=== PATIENT | female | born 1955 | race Caucasian/White ===

== ENCOUNTER → 2016-02-18 | Outpatient (CLI) | payer BC ==
[~2016-02-18] MED LIST: CALCTAB5 PO; CHOL100010 PO; EFFSR150 PO; LEVO50TA PO; MULT-506 PO; PRAV20TA PO
== END | disposition home or self-care (01) ==
LOC: C.PAPS 10:44
PROVIDERS: ATTEND Obstetrics & Gynecology
DX: Z01.419 Encounter for gynecological examination (general) (routine) without abnormal findings (principal)

== ENCOUNTER → 2016-02-22 | Outpatient (CLI) | payer BC | END | disposition home or self-care (01) | LOC: C.RDSM 12:43 | PROVIDERS: ATTEND Physical Medicine & Rehabilitation Sports Medicine | DX: M79.672 Pain in left foot (principal) ==

== ENCOUNTER → 2016-02-22 | Outpatient (CLI) | payer BC ==
--- NOTE | 2016-02-27 08:13 | CODING QUERY MEDICAL NECESSITY ---
: 1955 SUPPORTING DIAGNOSIS NEEDED A supporting diagnosis is required for the test/procedure performed on this patient in order for us to be reimbursed by the patient's insurance. Please provide a supporting diagnosis for the following test/procedure listed below next to the test name along with your signature. *If there is no additional diagnosis for this patient that would support the following test/procedure please document that below next to the test/procedure. Test(s)/Procedure(s) that require a supporting diagnosis: DOS: 02/22/16 * Vitamin D, 25-Hydroxy DIAGNOSIS: Provider Signature: Date: Thank you Denise Mitchell Health Information Management Once completed, please kindly fax back to [phone] For questions please call [phone]
== END | disposition home or self-care (01) ==
LOC: C.LAB1850 09:06
PROVIDERS: ATTEND Physical Medicine & Rehabilitation Sports Medicine
DX: M79.672 Pain in left foot (principal); S92.302A Fracture of unspecified metatarsal bone(s), left foot, initial encounter for closed fracture; X58.XXXA Exposure to other specified factors, initial encounter

== ENCOUNTER → 2016-03-24 | Outpatient (CLI) | payer BC ==
--- NOTE | 2016-03-24 15:49 | DIAGNOSTIC IMAGING REPORT ---
LEFT RIBS UNILATERAL WITH PA CHEST CLINICAL HISTORY: S29.9XXA Chest trauma RAD Left trauma. Pain. COMPARISON STUDY: None FINDINGS: Negative study left ribs. No acute process of the chest. IMPRESSION: Negative study Electronically signed by: Jus Hu M.D. 03/24/2016 3:48 PM Dictated Date/Time: 03/24/2016 3:46 PM
== END | disposition home or self-care (01) ==
LOC: C.RAD1850 15:28
PROVIDERS: ATTEND Internal Medicine
DX: S29.9XXA Unspecified injury of thorax, initial encounter (principal); X58.XXXA Exposure to other specified factors, initial encounter

== ENCOUNTER → 2016-03-26 | Outpatient (CLI) | payer BC | END | disposition home or self-care (01) | LOC: C.RDSM 16:15 | PROVIDERS: ATTEND Physical Medicine & Rehabilitation Sports Medicine | DX: S92.911A Unspecified fracture of right toe(s), initial encounter for closed fracture (principal); X58.XXXA Exposure to other specified factors, initial encounter ==

== ENCOUNTER → 2016-04-28 | Outpatient (CLI) | payer BC | END | disposition home or self-care (01) | LOC: C.RDSM 16:15 | PROVIDERS: ATTEND Physical Medicine & Rehabilitation Sports Medicine | DX: S92.309A Fracture of unspecified metatarsal bone(s), unspecified foot, initial encounter for closed fracture (principal); X58.XXXA Exposure to other specified factors, initial encounter ==

== ENCOUNTER → 2016-05-19 | Outpatient (CLI) | payer BC ==
[2016-05-19 13:25] LABS: ESTIMATED AVERAGE GLUCOSE 117 mg/dl; HA1C FLAG Normal (Normal)
[2016-05-19 13:50] LABS: ALT/SGPT 22 U/L (12-78); AST/SGOT 15 U/L (15-37); BLOOD UREA NITROGEN 16 mg/dl (7-18); BUN/CREATININE RATIO 20.6 (10-20); CALCIUM 8.9 mg/dl (8.5-10.1); CARBON DIOXIDE 26 mmol/L (21-32); CHLORIDE 106 mmol/L (98-107); CHOLESTEROL 219 mg/dl (0-200); CREATININE 0.79 mg/dl (0.60-1.20); GLUCOSE 93 mg/dl (70-99); SODIUM 140 mmol/L (136-145); TRIGLYCERIDES 127 mg/dl (0-150); VERY LOW DENSITY LIPOPROT CALC 25 mg/dl
[2016-05-19 14:00] LABS: CHOLESTEROL/HDL RATIO 3.4; HDL CHOLESTEROL 65 mg/dl; LDL CHOLESTEROL CALCULATED 129 mg/dl
== END | disposition home or self-care (01) ==
LOC: C.LAB1850 10:41
PROVIDERS: ATTEND Internal Medicine
DX: E78.5 Hyperlipidemia, unspecified (principal); R73.03 Prediabetes; E03.9 Hypothyroidism, unspecified

== ENCOUNTER → 2016-06-09 | Outpatient (CLI) | payer BC | END | disposition home or self-care (01) | LOC: C.RDSM 14:52 | PROVIDERS: ATTEND Physical Medicine & Rehabilitation Sports Medicine | DX: S92.355A Nondisplaced fracture of fifth metatarsal bone, left foot, initial encounter for closed fracture (principal); X58.XXXA Exposure to other specified factors, initial encounter ==

== ENCOUNTER → 2016-07-14 | Outpatient (CLI) | payer BC | END | disposition home or self-care (01) | LOC: C.RDSM 13:22 | PROVIDERS: ATTEND Physical Medicine & Rehabilitation Sports Medicine | DX: M79.672 Pain in left foot (principal) ==

== ENCOUNTER → 2016-09-01 | Outpatient (CLI) | payer BC | END | disposition home or self-care (01) | LOC: C.RDSM 13:22 | PROVIDERS: ATTEND Physical Medicine & Rehabilitation Sports Medicine | DX: S92.911A Unspecified fracture of right toe(s), initial encounter for closed fracture (principal); X58.XXXA Exposure to other specified factors, initial encounter ==

== ENCOUNTER → 2016-09-26 | Outpatient (CLI) | payer BC ==
[2016-09-26 10:22] LABS: BLOOD UREA NITROGEN 15 mg/dl (7-18); BUN/CREATININE RATIO 19.6 (10-20); CALCIUM 8.8 mg/dl (8.5-10.1); CARBON DIOXIDE 29 mmol/L (21-32); CHLORIDE 108 mmol/L (98-107); CREATININE 0.78 mg/dl (0.60-1.20); GLUCOSE 89 mg/dl (70-99); POTASSIUM 3.9 mmol/L (3.5-5.1); SODIUM 141 mmol/L (136-145)
[2016-09-26 10:35] LABS: CHOLESTEROL 187 mg/dl (0-200); CHOLESTEROL/HDL RATIO 2.7; HDL CHOLESTEROL 70 mg/dl; LDL CHOLESTEROL CALCULATED 86 mg/dl; TRIGLYCERIDES 153 mg/dl (0-150); VERY LOW DENSITY LIPOPROT CALC 31 mg/dl
[2016-09-26 11:57] LABS: ESTIMATED AVERAGE GLUCOSE 126 mg/dl; HA1C FLAG Normal (Normal)
== END | disposition home or self-care (01) ==
LOC: C.LAB1850 07:12
PROVIDERS: ATTEND Internal Medicine
DX: R73.03 Prediabetes (principal); E03.9 Hypothyroidism, unspecified; E78.5 Hyperlipidemia, unspecified

== ENCOUNTER → 2016-11-03 | Outpatient (CLI) | payer BC | END | disposition home or self-care (01) | LOC: C.RDSM 14:41 | PROVIDERS: ATTEND Physical Medicine & Rehabilitation Sports Medicine | DX: S92.911A Unspecified fracture of right toe(s), initial encounter for closed fracture (principal); X58.XXXA Exposure to other specified factors, initial encounter ==

== ENCOUNTER → 2016-12-08 | Outpatient (CLI) | payer BC | END | disposition home or self-care (01) | LOC: C.LAB1850 12:50 | PROVIDERS: ATTEND Nurse Practitioner Adult Health | DX: J02.9 Acute pharyngitis, unspecified (principal) ==

== ENCOUNTER → 2017-02-03 | Outpatient (CLI) | payer BC | END | disposition home or self-care (01) | LOC: C.MAMM 10:24 | PROVIDERS: ATTEND Internal Medicine Hematology & Oncology | DX: C50.919 Malignant neoplasm of unspecified site of unspecified female breast (principal); M81.0 Age-related osteoporosis without current pathological fracture; M85.852 Other specified disorders of bone density and structure, left thigh ==

== ENCOUNTER → 2017-02-04 | Outpatient (CLI) | payer BC | END | disposition home or self-care (01) | LOC: C.RDSM 08:30 | PROVIDERS: ATTEND Physical Medicine & Rehabilitation Sports Medicine | DX: S92.355G Nondisplaced fracture of fifth metatarsal bone, left foot, subsequent encounter for fracture with delayed healing (principal); X58.XXXA Exposure to other specified factors, initial encounter ==

== ENCOUNTER → 2017-02-23 | Outpatient (CLI) | payer BC, OTHER | END | disposition home or self-care (01) | LOC: C.RDSM 13:26 | PROVIDERS: ATTEND Physical Medicine & Rehabilitation Sports Medicine | DX: M25.511 Pain in right shoulder (principal) ==

== ENCOUNTER → 2017-03-05 | Outpatient (CLI) | payer OTHER | END | disposition home or self-care (01) | LOC: C.PAPS 11:18 | PROVIDERS: ATTEND Obstetrics & Gynecology | DX: Z01.419 Encounter for gynecological examination (general) (routine) without abnormal findings (principal); Z78.0 Asymptomatic menopausal state ==

== ENCOUNTER → 2017-03-10 | Outpatient (CLI) | payer OTHER ==
--- NOTE | 2017-03-10 09:09 | DIAGNOSTIC IMAGING REPORT ---
RIGHT SHOULDER MRI HISTORY: RT SHOULDER PAIN TECHNIQUE: Multiplanar multisequence MRI of the right shoulder was performed without contrast. COMPARISON STUDY: Right shoulder 02/23/2017. FINDINGS: AC joint: Moderate AC joint arthrosis demonstrated by joint space narrowing, marginal osteophytes, and subchondral edema/cystic change. Rotator cuff: Complete full-thickness tear of the entire supraspinatus tendon which demonstrates up to 4 cm of retraction. There is also full-thickness tear involving the anterior 50% of the infraspinatus tendon fibers. There is fatty atrophy of the supraspinatus and infraspinatus muscles. There is also suggestion of a full-thickness tear at the distal subscapularis tendon within interstitial component extending proximally. Fluid within the subacromial/subdeltoid bursa as well as superior subluxation of the humeral head in relation to the glenoid. This is due to the rotator cuff tear. Labrum: Abnormal signal configuration within the superior labrum consistent with a SLAP tear. Biceps tendon: The long head of the biceps tendon is completely torn and retracted into the bicipital groove. Bones: No acute fracture or dislocation. Small marginal osteophytes at the glenohumeral joint. Marrow edema within the superior glenoid which may be chronic. Cartilage: Near full-thickness scar is loss within the central and superior aspect of the glenoid. There is also mild cartilage thinning within the humeral head. Miscellaneous: Small joint effusion. There is also fluid within and superficial to the deltoid muscle consistent with a muscular strain. IMPRESSION: 1. Complete full-thickness tear with retraction of the supraspinatus tendon. There are additional focal full-thickness tears involving the anterior infraspinatus tendon fibers as well as the distal subscapularis tendon. 2. Complete tear and retraction of the long head of the biceps tendon. 3. SLAP tear. 4. Degenerative changes as described above. 5. Small joint effusion. 6. Deltoid strain. Electronically signed by: Garret Sheldon M.D. 03/10/2017 9:08 AM Dictated Date/Time: 03/10/2017 8:56 AM
== END | disposition home or self-care (01) ==
LOC: C.MRI 08:08
PROVIDERS: ATTEND Physical Medicine & Rehabilitation Sports Medicine
DX: M25.511 Pain in right shoulder (principal); S46.011A Strain of muscle(s) and tendon(s) of the rotator cuff of right shoulder, initial encounter; S46.111A Strain of muscle, fascia and tendon of long head of biceps, right arm, initial encounter; S46.811A Strain of other muscles, fascia and tendons at shoulder and upper arm level, right arm, initial encounter; X58.XXXA Exposure to other specified factors, initial encounter; M25.411 Effusion, right shoulder

== ENCOUNTER 2021-08-09 13:57 | Inpatient (IN) ==
[2021-08-09 14:52] LABS: Basophils # (auto) 0.03 K/uL (0-0.2); Basophils % (auto) 0.3 %; Eosinophils # (auto) 0.12 K/uL (0-0.5); Eosinophils % (auto) 1.3 %; Hematocrit (blood only) 43.4 % (37-47); Hemoglobin 13.9 g/dL (12.0-16.0); Immature Granulocytes # (auto) 0.03 K/uL (0.00-0.02); Immature Granulocytes % (auto) 0.3 %; Lymphocytes # (auto) 1.85 K/uL (1.2-3.4); Lymphocytes % (auto) 19.9 %; Mean Corpuscular Hemoglobin 28.8 pg (25-34); Mean Corpuscular Volume 89.9 fL (80-100); Mean Platelet Volume 11.5 fL (7.4-10.4); Monocytes # (auto) 0.83 K/uL (0.11-0.59); Monocytes % (auto) 8.9 %; Neutrophils # (auto) 6.42 K/uL (1.4-6.5); Neutrophils % (auto) 69.3 %; Platelet Count 282 K/uL (130-400); RDW Coefficient of Variation 14.1 % (11.5-14.5); RDW Standard Deviation 46.1 fL (36.4-46.3); Red Blood Count 4.83 M/uL (4.2-5.4); White Blood Count 9.28 K/uL (4.8-10.8)
[2021-08-09 14:55] LABS: INR 1.2 (0.9-1.1); Partial Thromboplastin Ratio 0.9; Partial Thromboplastin Time 23.8 Seconds (21.0-31.0); Prothrombin Time 12.7 Seconds (9.0-12.0)
[2021-08-09 14:57] LABS: Albumin Globulin Ratio 1.2 (0.9-2); Albumin Level 3.7 gm/dl (3.4-5.0); BUN Creatinine Ratio 34.1 (10-20); Bilirubin,Total 0.5 mg/dl (0.2-1.0); Calcium 8.9 mg/dl (8.5-10.1); Creatinine Clr Calc Pharmacy 53.4 ml/min; Est GFR (African American) 52.6 ml/min; Est GFR (Non-African American) 45.4 ml/min; Globulin 3.2 gm/dl (2.5-4.0); Magnesium 2.1 mg/dl (1.7-2.4); Total Protein 6.9 gm/dl (6.0-8.3)
--- NOTE | 2021-08-09 16:31 | XRay Report ---
XR chest 1V portable CLINICAL HISTORY: SOB TECHNIQUE: Single frontal radiograph of the chest was obtained. Comparison: Comparison is made to chest radiograph 07/06/2019 FINDINGS: A left portacatheter is unchanged. The cardiomediastinal silhouette is normal. The lungs are clear. T here is a small left pleural effusion. Trace right effusion cannot be excluded. IMPRESSION: Small bilateral pleural effusions. No evidence of airspace opacity. ACT 112: Negative or not required by law. Electronically signed by: Gautam Cowan M.D. 08/09/2021 4:30 PM
--- NOTE | 2021-08-09 16:57 | Emergency Department Note ---
History of Present Illness General Chief complaint: Shortness of Breath/Dyspnea Stated complaint: SOB, ANKLE SWELLING Time Seen by Provider: 08/09/21 16:38 History of Present Illness Maximum Pain Intensity: 0 66-year-old female presents to the ED with a chief complaint of shortness of lizz ath. The patient states that she has had symptoms since May. She states that she saw her doctor back then and was given albuterol treatment as well as some antibiotics. She states that her symptoms are persistent. It seems a little better if she sits up. A little worse with laying down. Also a little worse if she exerts herself. She states that she is scheduled to have a stress test on the . She has a history of breast cancer and is worried about the spreading or having spread to the lungs. She also states that her heart rate feels like it is a little fast and she has a little more edema in her right leg than usual. Home Medications Medication Instructions Recorded Confirmed Type calcium carbonate 600 mg calcium 600 mg PO BID 03/25/18 07/31/21 History (1,500 mg) tablet (Calcium) venlafaxine 150 mg 150 mg PO HS #90 cap 02/11/19 07/31/21 Rx capsule,extended release 24 hr (Effexor XR) venlafaxine 75 mg capsule,extended 75 mg PO QPM cap 01/17/20 07/31/21 History release 24 hr (Effexor XR) cholecalciferol (vitamin D3) 50 50 mcg PO DAILY #30 cap 01/14/21 07/31/21 Rx mcg (2,000 unit) capsule albuterol sulfate 90 mcg/actuation 2 puff INHALATION Q6H PRN #6.7 g 05/17/21 07/31/21 Rx aerosol inhaler fluocinonide 0.05 % topical gel 1 applic TOP BID PRN gm 05/17/21 07/31/21 History mupirocin 2 % topical ointment 1 applic TOP BID PRN gm 05/17/21 07/31/21 Hi story nystatin-triamcinolone 100,000 1 applic TOP BID PRN 05/17/21 07/31/21 History unit/gram-0.1 % topical ointment budesonide-formoterol HFA 80 1 inh INHALATION BID #10.2 g 06/07/21 07/31/21 Rx mcg-4.5 mcg/actuation aerosol inhaler (Symbicort) fluticasone propionate 50 2 spray INTRANASAL DAILY PRN g 06/18/21 07/31/21 History mcg/actuation nasal spray,suspension (Flonase Allergy Relief) lorazepam 0.5 mg tablet (Ativan) 0.5 mg PO DAILY PRN 06/21/21 07/31/21 History levothyroxine 75 mcg tablet 75 mcg PO DAILY #90 tab 07/11/21 07/31/21 Rx pravastatin 20 mg tablet 20 mg PO HS #90 tab 07/11/21 07/31/21 Rx Allergies Allergy/AdvReac Type Severity Reaction Status Date / Time cephalexin Allergy Mild RASH Verified 07/31/21 13:43 Penicillins Allergy Mild UNKNOWN Verified 07/31/21 13:43 Cephalosporins Allergy Unknown RASH Verified 07/31/21 13:43 Past Med/Surg History Medical History Anxiety Artificial menopause state Breast cancer (~1991) Depression Fracture of metatarsal bone Hearing deficit BL BAILEY History of breast cancer BL BREAST; CHEMO/RADIATION, MASTECTOMY Hyperlipidemia Hypothyroidism Limb alert care status PT HAD BL MASTECTOMY W/ LYMPH NODE EXCISION. PT REPORTS RT ARM IS OKAY FOR BP/IV STICKS. LEFT ARM RESTRICTED Osteopenia Osteoporosis Polyp of colon, adenomatous Prediabetes Spondylisthesis Vitamin D deficiency Surgical History History of adenoidectomy History of arthroscopy LEFT SHOULDER History of breast biopsy BL BREAST History of cataract surgery LEFT. 04/22/2018. 2mg versed. no issues. History of colonoscopy with polypectomy History of detached retina repair History of esophagogastroduodenoscopy (EGD) History of lumpectomy LEFT BREAST History of mastectomy BL BREAST; SEPARATE PROCEDURES History of tonsillectomy History of tooth extraction History of total abdominal hysterectomy and bilateral salpingo-oophorectomy History of vascular access device PT HAS A PORT Status post wrist surgery RT Family History Grandmother (Paternal) Family history of diabetes mellitus Retinal detachment Diabetes Father Colorectal cancer Hypertension Retinal detachment Diabetes Colon cancer Mother Ovarian cancer Parkinson disease Grandfather Colon cancer Grandmother (Maternal) Parkinson disease Other Breast cancer Denies family history of Prostate cancer Myocardial infarction Social History Smoking Status: Never smoker Second Hand Exposure: No; Hx Alcohol Use: Yes Alcohol type: hard liquor Hx Substance Use: No Preferred Language: [place] 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 Ability: 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3 C L Temperature Source Temporal Artery Scan Pulse Rate 112 H Pulse Rate from SpO2 Sensor Respiratory Rate 18 Respiratory Effort / Characteristics Non-Labored Respiratory Depth Normal Blood Pressure 146/95 H Blood Pressure Mean 112 Pulse Oximetry 97 Oxygen Delivery Method Room Air Room Air Room Air Sepsis Recent Fever Within 48 Hours No Sepsis New/Unexplained Change in Mental Status No Sepsis Action Taken by Nursing No Action Required 08/09/21 17:27 08/09/21 17:30 08/09/21 17:45 Temperature Temperature Source Pulse Rate 109 H 106 H 106 H Pulse Rate from SpO2 Sensor 110 H 107 H 105 H Respiratory Rate 12 18 19 Respiratory Effort / Characteristics Respiratory Depth Blood Pressure Blood Pressure Mean Pulse Oximetry 97 98 98 Oxygen Delivery Method Sepsis Recent Fever Within 48 Hours Sepsis New/Unexplained Change in Mental Status Sepsis Action Taken by Nursing 08/09/21 18:00 08/09/21 18:15 Temperature Temperature Source Pulse Rate 103 H 107 H Pulse Rate from SpO2 Sensor 104 H 107 H Respiratory Rate 14 26 H Respiratory Effort / Characteristics Respiratory Depth Blood Pressure Blood Pressure Mean Pulse Oximetry 97 97 Oxygen Delivery Method Sepsis Recent Fever Within 48 Hours Sepsis New/Unexplained Change in Mental Status Sepsis Action Taken by Nursing CONSTITUTIONAL/VITAL SIGNS: Reviewed / noted above. GENERAL: Non-toxic in appearance. INTEGUMENTARY: Warm, dry, and [place]. HEAD: Normocephalic. EYES: without scleral icterus or trauma. ENT/OROPHARYNX: clear and moist. LYMPHADENOPATHY/NECK: Is supple without lymphadenopathy or meningismus. RESPIRATORY: Clear to auscultation bilaterally. No increased work of breathing. CARDIOVASCULAR: Regular rate and rhythm. GI/ABDOMEN: Soft and nontender. No organomegaly or pulsatile mass. EXTREMITIES: Warm and well perfused. Mild pedal edema. No calf tenderness. BACK: No CVA tenderness. NEUROLOGICAL: Intact without focal deficits. PSYCHIATRIC: normal affect. MUSCULOSKELETAL: Normally developed with good muscle tone. TRIAGE NURSING DOCUMENTATION REVIEWED. Course Administered Medications Discontinued Medications Ioversol (Optiray 320 125ml) 118 ml IV ONCE ONE Stop: 08/09/21 17:21 Last Admin: 08/09/21 17:20 Dose: 118 ml Documented by: [id number] Medical Decision Making Differential Diagnosis The differential was considered includes acute myocardial infarction, acute coronary syndrome, myocarditis, pericarditis, pericardial effusions /tamponad, esophageal perforation, pulmonary embolism, pneumonia, pneumothorax, cardiomyopathy, congestive heart, anemia , COPD/asthma exacerbation. Medical Records Attestation: I reviewed the patient's medical records. Home Medications Current Medication List: was personally reviewed by me Laboratory Data Attestation: I reviewed the patient's lab results. Result diagrams: 08/09/21 14:22 08/09/21 14:22 Lab Results 08/09/21 08/09/21 08/09/21 Range/Units 14:22 14:22 14:22 WBC 9.28 (4.8-10.8) K/uL RBC 4.83 (4.2-5.4) M/uL Hgb 13.9 (12.0-16.0) g/dL Hct 43.4 (37-47) % MCV 89.9 (80-100) fL MCH 28.8 (25-34) pg MCHC 32.0 (32-36) g/dL RDW Std Deviation 46.1 (36.4-46.3) fL RDW Coeff of Jesse 14.1 (11.5-14.5) % Plt Count 282 (130-400) K/uL MPV 11.5 H (7.4-10.4) fL Immature Gran % (Auto) 0.3 % Neut % (Auto) 69.3 % Lymph % (Auto) 19.9 % [place] % (Auto) 8.9 % Eos % (Auto) 1.3 % Baso % (Auto) 0.3 % Neut # (Auto) 6.42 (1.4-6.5) K/uL Lymph # (Auto) 1.85 (1.2-3.4) K/uL [place] # (Auto) 0.83 H (0.11-0.59) K/uL Eos # (Auto) 0.12 (0-0.5) K/uL Baso # (Auto) 0.03 (0-0.2) K/uL Immature Gran # (Auto) 0.03 H (0.00-0.02) K/uL PT 12.7 H (9.0-12.0) Seconds INR 1.2 H (0.9-1.1) APTT 23.8 (21.0-31.0) Seconds PTT Ratio 0.9 Sodium 141 (136-145) mmol/L Potassium 4.0 (3.5-5.1) mmol/L Chloride 110 H (98-107) mmol/L Carbon Dioxide 25 (21-32) mmol/L Anion Gap 6 (3-11) BUN 42 H (6-23) mg/dl Creatinine 1.23 H (0.6-1.2) mg/dl Est Cr Clr Drug Dosing 53.4 ml/min Est GFR ( Amer) 52.6 ml/min Est GFR (Non-Af Amer) 45.4 ml/min BUN/Creatinine Ratio 34.1 H (10-20) Glucose 129 H (70-99(Fasting)) mg/dl Calcium 8.9 (8.5-10.1) mg/dl Magnesium 2.1 (1.7-2.4) mg/dl Total Bilirubin 0.5 (0.2-1.0) mg/dl AST 42 H (13-39) U/L ALT 73 H (7-52) U/L Alkaline Phosphatase 109 H (34-104) U/L Troponin I High Sens (0-14) pg/ml Total Protein 6.9 (6.0-8.3) gm/dl Albumin 3.7 (3.4-5.0) gm/dl Globulin 3.2 (2.5-4.0) gm/dl Albumin/Globulin Ratio 1.2 (0.9-2) 08/09/21 Range/Units 14:22 WBC (4.8-10.8) K/uL RBC (4.2-5.4) M/uL Hgb (12.0-16.0) g/dL Hct (37-47) % MCV (80-100) fL MCH (25-34) pg MCHC (32-36) g/dL RDW Std Deviation (36.4-46.3) fL RDW Coeff of Jesse (11.5-14.5) % Plt Count (130-400) K/uL MPV (7.4-10.4) fL Immature Gran % (Auto) % Neut % (Auto) % Lymph % (Auto) % [place] % (Auto) % Eos % (Auto) % Baso % (Auto) % Neut # (Auto) (1.4-6.5) K/uL Lymph # (Auto) (1.2-3.4) K/uL [place] # (Auto) (0.11-0.59) K/uL Eos # (Auto) (0-0.5) K/uL Baso # (Auto) (0-0.2) K/uL Immature Gran # (Auto) (0.00-0.02) K/uL PT (9.0-12.0) Seconds INR (0.9-1.1) APTT (21.0-31.0) Seconds PTT Ratio Sodium (136-145) mmol/L Potassium (3.5-5.1) mmol/L Chloride (98-107) mmol/L Carbon Dioxide (21-32) mmol/L Anion Gap (3-11) BUN (6-23) mg/dl Creatinine (0.6-1.2) mg/dl Est Cr Clr Drug Dosing ml/min Est GFR ( Amer) ml/min Est GFR (Non-Af Amer) ml/min BUN/Creatinine Ratio (10-20) Glucose (70-99(Fasting)) mg/dl Calcium (8.5-10.1) mg/dl Magnesium (1.7-2.4) mg/dl Total Bilirubin (0.2-1.0) mg/dl AST (13-39) U/L ALT (7-52) U/L Alkaline Phosphatase (34-104) U/L Troponin I High Sens 36.9 H (0-14) pg/ml Total Protein (6.0-8.3) gm/dl Albumin (3.4-5.0) gm/dl Globulin (2.5-4.0) gm/dl Albumin/Globulin Ratio (0.9-2) Imaging Data Radiologist's Impression: Chest X-Ray 08/09/21 14:05 XR chest 1V portable CLINICAL HISTORY: SOB TECHNIQUE: Single frontal radiograph of the chest was obtained. Comparison: Comparison is made to chest radiograph 07/06/2019 FINDINGS: A left portacatheter is unchanged. The cardiomediastinal silhouette is normal. The lungs are clear. There is a small left pleural effusion. Trace right effusion cannot be excluded. IMPRESSION: Small bilateral pleural effusions. No evidence of airspace opacity. ACT 112: Negative or not required by law. Electronically signed by: Gautam Cowan M.D. 08/09/2021 4:30 PM Chest CTA 08/09/21 16:51 CT ANGIOGRAPHY OF THE CHEST, PULMONARY EMBOLUS PROTOCOL CLINICAL HISTORY: Shortness of breath. Tachycardia. COMPARISON STUDY: Chest radiograph July 05, 2021 and August 09, 2021. PET/CT February 24, 2007. TECHNIQUE: Following IV administration of 118 mL of Optiray, helical axial i mages of the chest were obtained utilizing the pulmonary embolus protocol. Maximal intensity projections and sagittal and coronal reformats were viewed on an independent 3D workstation. IV contrast was administered without complication. Automated exposure control was utilized for the study. A dose lowering technique was utilized adhering to the principles of ALARA. CT DOSE: 423.83 mGy.cm FINDINGS: No pulmonary emboli are identified. Moderate cardiomegaly is noted. There is no pericardial effusion. Prominent mediastinal and bilateral hilar lymph nodes are noted. These may be related to pulmonary edema. There is no pneumothorax. Moderate bilateral pleural effusions are present. Lungs are suboptimally assessed due to respiratory motion. Interlobular septal thickening and groundglass opacities within the lungs suggest pulmonary edema. Central airways are patent. Linear opacities reflect atelectasis. There is no pneumothorax. Postoperative findings within the bilateral axilla are noted. There are bilateral mastectomies. Gallbladder wall thickening is incidentally noted. This is a nonspecific finding. There is mild body wall edema. Stranding within the upper abdomen is likely due to volume overload. IMPRESSION: 1. No pulmonary emboli identified. 2. Findings consistent with pulmonary edema with moderate bilateral pleural effusions. Cardiomegaly. 3. Gallbladder wall thickening with adjacent stranding which is nonspecific and may be related to volume overload/congestive heart failure. This could be correlated with right upper quadrant pain. ACT 112: Negative or not required by law. Electronically signed by: Yahir Griffith M.D. 08/09/2021 5:31 PM ECG Data Attestation: I personally reviewed and interpreted this ECG as follows: Additional Comments: Twelve-lead EKG: Per my interpretation shows a sinus tachycardia rate of 113. No ST elevation. No PVCs. Normal QTC. No significant change from June 07, 2021. PVCs are no longer present. MDM Narrative Patient presents to the ED with a chief complaint of orthopnea and exertional dyspnea that has recently gotten worse. She is scheduled to have a stress test on the . The patient's EKG shows a sinus tach at a rate of 113. No significant ST changes compared to June 07, 2021. CBC is unremarkable. The B UN is 42 and the creatinine is 1.2. She has a mild transaminitis. Chest x-ray and CT scan of the chest suggests pulmonary edema and moderate bilateral pleural effusions. Troponin is mildly elevated. Given the patient's symptoms and today's evaluation and the fact that she is set up for stress test on the , I feel the patient needs further inpatient evaluation more urgently. I spoke with the hospitalist to this regard. She was given an IV dose of Lasix here. Impression & Plan Dyspnea, Congestive heart failure, Elevated troponin Discharge Plan Visit Data Chief Complaint: Shortness of Breath/Dyspnea Stated Complaint: SOB, ANKLE SWELLING ED Provider: Kaz Hendrickson Discharge Problem: Dyspnea, Congestive heart failure, Elevated troponin Patient Disposition: Being Evaluated by Hospitalist Forms Stand Alone Forms: My [facility], Virtual Emergency Department, Important Visit Information Prescriptions Prescriptions: No Action venlafaxine [Effexor XR] 150 mg capsule,extended release 24hr 150 mg PO HS Qty: 90 RF: 0 cholecalciferol (vitamin D3) 50 mcg (2,000 unit) capsule 50 mcg PO DAILY Qty: 30 RF: 0 pravastatin 20 mg tablet 20 mg PO HS Qty: 90 RF: 3 levothyroxine 75 mcg tablet 75 mcg PO DAILY Qty: 90 RF: 3 budesonide-formoterol [Symbicort] 80-4.5 mcg/actuation HFA aerosol inhaler 1 inh inhalation BID Qty: 10.2 RF: 0 venlafaxine [Effexor XR] 75 mg capsule,extended release 24hr 75 mg PO QPM RF: 0 fluocinonide 0.05 % gel 1 applic TOP BID PRNRF: 0 mupirocin 2 % ointment 1 applic TOP BID PRNRF: 0 albuterol sulfate 90 mcg/actuation HFA aerosol inhaler 2 puff inhalation Q6H PRN (Reason: shortness of breath or wheezing) Qty: 6.7 RF: 0 fluticasone propionate [Flonase Allergy Relief] 50 mcg/actuation spray,suspension 2 spray intranasal DAILY PRNRF: 0 nystatin-triamcinolone 100,000-0.1 unit/gram-% ointment 1 applic TOP BID PRNRF: 0 lorazepam [Ativan] 0.5 mg tablet 0.5 mg PO DAILY PRNRF: 0 calcium carbonate [Calcium 600] 600 mg calcium (1,500 mg) Tablet 600 mg PO BID RF: 0 Referrals Referrals: Lamberto Ortiz MD [Primary Care Provider] -
--- NOTE | 2021-08-09 17:01 | Electrocardiogram Report ---
Test Reason : Blood Pressure : / mmHG Vent. Rate : 113 BPM Atrial Rate : 113 BPM P-R Int : 144 ms QRS Dur : 086 ms QT Int : 326 ms P-R-T Axes : 077 034 -65 degrees QTc Int : 447 ms Poor data quality, interpretation may be adversely affected Sinus tachycardia Left atrial enlargement T wave abnormality, consider lateral ischemia ST depression in Anterolateral leads , consider ischemia Abnormal ECG When compared with ECG of 10-JUL-2015 13:15, Vent. rate has increased BY 39 BPM T wave inversion now evident in Lateral leads ST depression in natlat now present Confirmed by Tobias Wheeler ([id number]) on 08/09/2021 5:01:12 PM Referred By: SELF Confirmed By:Tobias Wheeler
[2021-08-09] MEDS ORDERED: OPTIRAY 320 125ml IV ONE (17:20)
--- NOTE | 2021-08-09 17:33 | CT Scan Report ---
CT ANGIOGRAPHY OF THE CHEST, PULMONARY EMBOLUS PROTOCOL CLINICAL HISTORY: Shortness of breath. Tachycardia. COMPARISON STUDY: Chest radiograph July 05, 2021 and August 09, 2021. PET/CT February 24, 2007. TECHNIQUE: Following IV administration of 118 mL of Optiray, helical axial images of the chest were o btained utilizing the pulmonary embolus protocol. Maximal intensity projections and sagittal and cor onal reformats were viewed on an independent 3D workstation. IV contrast was administered without co mplication. Automated exposure control was utilized for the study. A dose lowering technique was ut ilized adhering to the principles of ALARA. CT DOSE: 423.83 mGy.cm FINDINGS: No pulmonary emboli are identified. Moderate cardiomegaly is noted. There is no pericardia l effusion. Prominent mediastinal and bilateral hilar lymph nodes are noted. These may be related to pulmonary edema. There is no pneumothorax. Moderate bilateral pleural effusions are present. Lungs ar e suboptimally assessed due to respiratory motion. Interlobular septal thickening and groundglass opa cities within the lungs suggest pulmonary edema. Central airways are patent. Linear opacities reflect atelectasis. There is no pneumothorax. Postoperative findings within the bilateral axilla are noted. There are bilateral mastectomies. Gallbladder wall thickening is incidentally noted. This is a nonsp ecific finding. There is mild body wall edema. Stranding within the upper abdomen is likely due to vo lume overload. IMPRESSION: 1. No pulmonary emboli identified. 2. Findings consistent with pulmonary edema with moderate bilateral pleural effusions. Cardiomegaly. 3. Gallbladder wall thickening with adjacent stranding which is nonspecific and may be related to vol ume overload/congestive heart failure. This could be correlated with right upper quadrant pain. ACT 112: Negative or not required by law. Electronically signed by: Yahir Griffith M.D. 08/09/2021 5:31 PM
[2021-08-09] MEDS ORDERED: FUROSEMIDE INJ 20 MG/2 ML VIAL IV ONE (19:40)
--- NOTE | 2021-08-09 21:24 | History & Physical Report ---
Date of Service August 09, 2021 Assessment & Plan (1) Congestive heart failure: Plan: Faina Kerr is a 66-year-old female with past medical history of anxiety, depression, breast cancer for which she received doxorubicin, hyperlipidemia, hypothyroidism, osteoporosis, prediabetes who presented to [facility] for shortness of breath. Imaging and physical exam findings consistent with fluid overload concerning for new-onset CHF. Congestive heart failure likely, new onset No known history of CAD, no treatment for hypertension EKGs do show some evidence of likely prior ischemia, expect patient will probably require catheterization Received Lasix 20 mg IV in ED Continue with Lasix 40 mg IV daily Monitor I's and O's, daily weights Patient is not currently on ABDOUL/ARB, beta-mann or any other cardiac treat ment Echocardiogram ordered Cardiology consulted patient has been seen previously by Dr. Sargent Elevate head of bed CMP in a.m. monitor creatinine Admit to telemetry Elevated troponin Mild troponin elevation likely due to demand ischemia Patient did have ST depression in anterolateral leads, which are visible in EKG from June 07, 2021 Has not had any chest pain Continue to trend Cardiology consulted as above Elevated LFTs CT findings of gallbladder wall thickening with adjacent stranding as well Likely secondary to fluid overload No current abdominal/GI complaints Repeat CMP in a.m. Anxiety/depression/schizoid personality disorder Continue home venlafaxine Continue home lorazepam as needed Hyperlipidemia Continue home pravastatin 20 mg Lipid profile from 07/10/2021 showing total cholesterol 178, LDL 91, HDL 67 Hypothyroidism Continue home levothyroxine Asthma/bronchitis Continue home inhaler regimen DVT prophylaxis: Heparin 5000 units subcu every 8 hours Diet: Heart healthy, low-sodium Dispo: Admit to telemetry CODE STATUS: Full (2) Dyspnea: (3) Elevated troponin: (4) Hyperlipidemia: (5) Hypothyroidism: (6) Vitamin D deficiency: (7) Schizoid personality disorder, unspecified: (8) Polyp of colon, adenomatous: (9) Osteoporosis: (10) Breast cancer: (11) Anxiety: (12) Depression: Plan: Pt seen/examined in conjunction with resident MD Knox. Orders and plan of admission formulated with resident. 66 y/o F Hx asthma, hypothyroidism, HLD, depression, breast CA - chemo included doxorubicin. She has had progressive exertional dyspnea x 2 months. She was scheduled for a stress test 07/20 following a cardiology evaluation. Recently her symptoms have worsened and she reports orthopnea and LE edema. She contacted her primary MD and was instructed to attend the ER. Initial labs were notable for an elevated troponin, transaminitis and mild renal impairment. A CT chest demonstrated BL effusions and pulmonary edema. An EKG shows sinus tach and ST changes inferiorly and laterally. She does not endorse CP at the time of evaluation. She had a pressure of 165/110 on arrival to the ER. O/E General: AAO x 3, no distress ENT: No erythema or exudates, no thrush Eyes: SOFIA, EOMI Head and neck: Normocephalic, atraumatic, No JVD, neck is supple. Chest/heart: Nontender, S1,2, RRR, no murmurs, no gallops Lungs: BL basilar crackles noted Abdomen: Nontender, nondistended, BS+ Neuro: AAO x 3, speech is clear, no unilateral weakness or loss of sensation, coordination intact Musculoskeletal: No joint inflammation, muscle tenderness, FROM Skin: No acute rashes or ulcers Extremities: No clubbing, cyanosis. + BL edema. A/P 1) New-onset CHF - diuretics provided, I/O daily weights, echo cardiology consult. 2) Elevated trop - EKG changes - presentation is not consistent with ACS however. We will provide full-dose anticoagulation if trop trends up. Echo pending. Cont statin. 3) ANGELA - mild - likely due to volume overload/low flow. We would expect improvement with diuresis. BMP AM. 4) Transaminitis - likely due to congestion. Trend LFTs 5) Hypothyroidism - TSH WNL May - cont Synthroid. Repeat TSH. 6) BP elevated likely due to volume - consider beta mann AM and will apply NTG. 7) depression - cont venlafaxine 8) Asthma - no evidence of exacerbation - cont prescribed inhalers Total time for this admission including review of labs, meds, imaging, records, discussion with pt and ER attending - 50 min History of Present Illness Primary Care Provider: Lamberto Ortiz MD Faina Kerr is a 66-year-old female with past medical history of anxiety, depression, breast cancer for which she received doxorubicin, hyperlipidemia, hypothyroidism, osteoporosis, prediabetes who presented to [facility] for shortness of breath. States that symptoms started in May and she had presented to her PCPs office for evaluation. At that time, her symptoms were thought to be caused by asthma exacerbation and bacterial rhinosinusitis. She was given albuterol and d oxycycline. Later that month she did present again to her PCPs office for follow-up and was incidentally found to have frequent PVCs at that visit. She did not endorse any chest pain or palpitations with this, though she did report occasionally feeling skipped beats. She was referred to cardiology for further discussion. She was seen by [facility] cardiology in late June. A Holter monitor was ordered, and at the time she did report some wheezing and mild dyspnea. Thought to be related to underlying bronchitis or lung issue, but echocardiogram to be considered if she did not improve. She presented again to her primary care office in late July with continued shortness of breath. At this visit, her symptoms did seem more consistent with exertional dyspnea as she reported having to stop and rest when walking up her street and going up stairs. At that point, stress testing was ordered and it was recommended that she present to the ER if she had worsening shortness of breath or chest pain. Today, she did have worsening dyspnea. Continues to report that it feels worse with exertion and now with laying down as well. She does feel somewhat better when she sits up. Also reported some ankle swelling, worse on her right. Denies chest pain, nausea, vomiting, abdominal pain, fever, chills, headache, dizziness. In the ED, patient had CT of the chest demonstrating pulmonary edema with moderate bilateral pleural effusions and cardiomegaly, no PE, and did show gallbladder wall thickening with adjacent stranding this was considered to be nonspecific and possibly related to volume overload/congestive heart failure. She did not report any abdominal/GI symptoms at this time. Lab work showing normal WBC, normal hemoglobin, normal platelet count, normal electrolytes. Troponin mildly elevated to 36.9. Initial creatinine at 1.15, which was repeated later and had increased to 1.23. Did have elevated LFTs with AST of 42, ALT 73, alk phos 109. She received a single dose of Lasix 20 mg IV. Allergies Allergy/AdvReac Type Severity Reaction Status Date / Time cephalexin Allergy Mild RASH Verified 08/09/21 21:31 Penicillins Allergy Mild UNKNOWN Verified 08/09/21 21:31 Cephalosporins Allergy Unknown RASH Verified 08/09/21 21:31 Home Medications Medication Instructions Recorded Confirmed Type calcium carbonate 600 mg calcium 600 mg PO BID 03/25/18 08/09/21 History (1,500 mg) tablet (Calcium) venlafaxine 150 mg 150 mg PO HS #90 cap 02/11/19 08/09/21 Rx capsule,extended release 24 hr (Effexor XR) venlafaxine 75 mg capsule,extended 75 mg PO HS cap 01/17/20 08/09/21 History release 24 hr (Effexor XR) cholecalciferol (vitamin D3) 50 50 mcg PO DAILY #30 cap 01/14/21 08/09/21 Rx mcg (2,000 unit) capsule albuterol sulfate 90 mcg/actuation 2 puff INHALATION Q6H PRN #6.7 g 05/17/21 08/09/21 Rx aerosol inhaler fluocinonide 0.05 % topical gel 1 applic TOP BID PRN gm 05/17/21 08/09/21 History mupirocin 2 % topical ointment 1 applic TOP BID PRN gm 05/17/21 08/09/21 History nystatin-triamcinolone 100,000 1 applic TOP BID PRN 05/17/21 08/09/21 History unit/gram-0.1 % topical ointment budesonide-formoterol HFA 80 1 inh INHALATION BID #10.2 g 06/07/21 08/09/21 Rx mcg-4.5 mcg/actuation aerosol inhaler (Symbicort) fluticasone propionate 50 2 spray INTRANASAL DAILY PRN g 06/18/21 08/09/21 History mcg/actuation nasal spray,suspension (Flonase Allergy Relief) lorazepam 0.5 mg tablet (Ativan) 0.5 mg PO DAILY PRN 06/21/21 08/09/21 History levothyroxine 75 mcg tablet 75 mcg PO DAILY #90 tab 07/11/21 08/09/21 Rx pravastatin 20 mg tablet 20 mg PO HS #90 tab 07/11/21 08/09/21 Rx Past Med/Surg History Medical History (Updated 08/09/21 @ 21:17 by Demond Knox MD) Anxiety Artificial menopause state Breast cancer (~1991) Depression Fracture of metatarsal bone Hearing deficit BL BAILEY History of breast cancer BL BREAST; CHEMO/RADIATION, MASTECTOMY Hyperlipidemia Hypothyroidism Limb alert care status PT HAD BL MASTECTOMY W/ LYMPH NODE EXCISION. PT REPORTS RT ARM IS OKAY FOR BP/IV STICKS. LEFT ARM RESTRICTED Osteopenia Osteoporosis Polyp of colon, adenomatous Prediabetes Spondylisthesis Vitamin D deficiency Surgical History History of adenoidectomy History of arthroscopy LEFT SHOULDER History of breast biopsy BL BREAST History of cataract surgery LEFT. 04/22/2018. 2mg versed. no issues. History of colonoscopy with polypectomy History of detached retina repair History of esophagogastroduodenoscopy (EGD) History of lumpectomy LEFT BREAST History of mastectomy BL BREAST; SEPARATE PROCEDURES History of tonsillectomy History of tooth extraction History of total abdominal hysterectomy and bilateral salpingo-oophorectomy History of vascular access device PT HAS A PORT Status post wrist surgery RT Family History Grandmother (Paternal) Family history of diabetes mellitus Retinal detachment Diabetes Father Colorectal cancer Hypertension Retinal detachment Diabetes Colon cancer Mother Ovarian cancer Parkinson disease Grandfather Colon cancer Grandmother (Maternal) Parkinson disease Other Breast cancer Denies family history of Prostate cancer Myocardial infarction Social History Smoking Status: Never smoker Second Hand Exposure: No; Do You Dip or Chew Tobacco: No; Hx Alcohol Use: Yes Alcohol type: beer and wine Hx Substance Use: No Preferred Language: Croatian 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 Ability: Effective 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 Coffee Required: No Beliefs That Will Affect Care: None marital status: Single Current Living Situation: Alone current occupational status: employed current occupation: [employer] Other Information That Helps Us Care for You: No Feels Safe at Home: Yes Safety Concerns: Feels Safe At This Time Childhood Exposure to Second-Hand Smoke: No Dental Care, Regularly: Yes Physical Activity Frequency: Does not Exercise Seatbelt Use: always Sunscreen Use: Yes Assistive Devices: Glasses and Hearing Aid - Right Review of Systems Review of Systems: Per HPI Physical Exam Physical Exam: GENERAL: A&Ox3. NAD. HEENT: PERRL, EOMI. Moist mucous membranes. NECK: No JVD. No lymphadenopathy. CHEST/LUNGS: CTAB A/P. No crackles, wheezes, rales, rhonchi. HEART: Tachycardic, regular rhythm. No m/g/r. No carotid bruits. ABDOMEN: NT/ND, soft. BS+ x4 EXTREMITIES: 1+ pitting edema in right lower extremity up to ankle, trace edema in left lower extremity. No cyanosis, no clubbing. SKIN: Warm and dry. No rashes or lesions. PSYCHIATRIC: Euthymic affect, no SI, no pressured speech, no hallucinations NEUROLOGIC: No FND. CN II-XII grossly intact. Results & Data Results & Data ([facility]) Vital Signs (Past 12 Hours) Vital Signs Temp Pulse Pulse Resp BP BP Pulse Ox 08/09/21 20:19 107 H 20 165/114 H 97 08/09/21 18:15 107 H 26 H 97 08/09/21 18:00 103 H 14 97 08/09/21 17:45 106 H 19 98 08/09/21 17:30 106 H 18 98 08/09/21 17:27 109 H 12 97 08/09/21 14:03 36.3 C L 112 H 18 146/95 H 97 Code Status & VTE Plan VTE Prophylaxis Plan VTE Prophylaxis will be ordered: Yes Resident Activity Tracking Resident Involvement: Resident Care Provided Care Provided: Adult Hospital Medicine
[2021-08-09] MEDS ORDERED: NYSTATIN/TRIAMCIN OINT 15 GM TUBE EXT PRN (21:39)
[2021-08-09] MEDS ORDERED: FLUTICASONE PROPIONATE NA SPR 16 GM BTL PRN (21:39)
[2021-08-09] MEDS ORDERED: ONDANSETRON INJ 2 MG/ML 2 ML VIAL IV PRN (21:39)
[2021-08-09] MEDS ORDERED: FLUOCINONIDE 0.05% OINT 15 GM TUBE EXT PRN (21:39)
[2021-08-09] MEDS ORDERED: ACETAMINOPHEN 325 MG TAB PO PRN (21:39)
[2021-08-09] MEDS ORDERED: ALUMINUM/MAGNESIUM SUSP 30 ML UDC PO PRN (21:39)
[2021-08-09] MEDS ORDERED: LORazepam 0.5 MG TAB PO PRN (21:39)
[2021-08-09] MEDS ORDERED: ALBUTEROL HFA 8 GM INHALER INH PRN (21:39)
[2021-08-09] MEDS ORDERED: POLYETHYLENE (MIRALAX) 17 GM PACK PO PRN (21:39)
[2021-08-09] MEDS: CALCIUM CARBONATE 1250MG TAB PO SCH (22:24)
[2021-08-09] MEDS: VENLAFAXINE HCL XR 150 MG CAPXR PO SCH (22:25)
[2021-08-09] MEDS: VENLAFAXINE HCL XR 75 MG CAPXR PO SCH (22:25)
[2021-08-09] MEDS: PRAVASTATIN SOD 20 MG TAB PO SCH (22:25)
[2021-08-09] MEDS: HEPARIN SOD 5,000 UNIT/0.5 ML VIAL SQ SCH (22:30)
[2021-08-10] MEDS: NITROGLYCERIN 2% OINTMENT 30GM TUBE EXT SCH ×5 (01:37→23:42)
[2021-08-10 04:15] LABS: Basophils # (auto) 0.02 K/uL (0-0.2); Basophils % (auto) 0.2 %; Eosinophils # (auto) 0.09 K/uL (0-0.5); Eosinophils % (auto) 1.1 %; Hemoglobin 12.7 g/dL (12.0-16.0); Immature Granulocytes # (auto) 0.01 K/uL (0.00-0.02); Immature Granulocytes % (auto) 0.1 %; Lymphocytes # (auto) 1.94 K/uL (1.2-3.4); Mean Corpuscular Hemoglobin 29.1 pg (25-34); Mean Corpuscular Hgb Conc 32.6 g/dL (32-36); Mean Corpuscular Volume 89.4 fL (80-100); Mean Platelet Volume 11.6 fL (7.4-10.4); Monocytes # (auto) 0.76 K/uL (0.11-0.59); Neutrophils # (auto) 5.61 K/uL (1.4-6.5); Neutrophils % (auto) 66.6 %; Platelet Count 236 K/uL (130-400); RDW Standard Deviation 46.1 fL (36.4-46.3); Red Blood Count 4.36 M/uL (4.2-5.4); White Blood Count 8.43 K/uL (4.8-10.8)
[2021-08-10 04:24] LABS: Albumin Globulin Ratio 1.2 (0.9-2); Albumin Level 3.3 gm/dl (3.4-5.0); BUN Creatinine Ratio 38.4 (10-20); Bilirubin,Total 0.5 mg/dl (0.2-1.0); Calcium 8.9 mg/dl (8.5-10.1); Creatinine Clr Calc Pharmacy 66.1 ml/min; Est GFR (African American) 68.3 ml/min; Globulin 2.8 gm/dl (2.5-4.0); Magnesium 1.9 mg/dl (1.7-2.4); Potassium 3.8 mmol/L (3.5-5.1); Total Protein 6.1 gm/dl (6.0-8.3)
[2021-08-10] MEDS: HEPARIN SOD 5,000 UNIT/0.5 ML VIAL SQ SCH (05:46)
[2021-08-10] MEDS: LEVOTHYROXINE SODIUM 75 MCG TABLET PO SCH (05:46)
[2021-08-10] MEDS: FUROSEMIDE 40 MG/4 ML VIAL IV SCH (08:35)
[2021-08-10] MEDS: CALCIUM CARBONATE 1250MG TAB PO SCH ×2 (08:37→20:11)
[2021-08-10] MEDS: CHOLECALCIFEROL 1,000 UNITS 25 MCG TAB PO SCH (08:37)
[2021-08-10] MEDS: FLUTICASONE/VILANTEROL 100/25MCG 14 PUFFS/INHALER INH SCH (08:37)
[2021-08-10] MEDS ORDERED: HEPARIN SODIUM/DEXTROSE 25,000 UNITS/500 ML BAG IV SCH (10:15)
[2021-08-10] MEDS ORDERED: Heparin IV Adult Wt-Based Standard *NO* Bolus Protocol IV STA (10:45)
[2021-08-10 11:06] LABS: INR 1.1 (0.9-1.1); Partial Thromboplastin Ratio 0.9; Partial Thromboplastin Time 24.2 Seconds (21.0-31.0); Prothrombin Time 11.9 Seconds (9.0-12.0)
[2021-08-10] MEDS: HEPARIN SODIUM/DEXTROSE 25,000 UNITS/500 ML BAG IV SCH (11:19)
--- NOTE | 2021-08-10 11:50 | XCELERA ---
[id number]
--- NOTE | 2021-08-10 11:54 | Ultrasound Report ---
US venous doppler LE RT CLINICAL HISTORY: RLE swelling TECHNIQUE: Right lower extremity real-time compression venous ultrasound with Color Doppler imaging. Utilizing real-time ultrasonic imaging multiple real time high-resolution ultrasonic images with comp ression and noncompression maneuvers of the deep venous system in addition to color doppler imaging w ere performed from the common femoral vein through the proximal calf veins. COMPARISON: None available at the time of this dictation. FINDINGS: Currently there is normal compressibility of the deep venous system from the common femoral vein thro ugh the proximal calf veins. A popliteal cyst at lesion is seen measuring 8.3 x 2.0 x 7.3 cm. This i s favored to represent a Tompkins's cyst. Impression: No evidence of deep venous thrombus. ACT 112: Negative or not required by law. Electronically signed by: Gautam Cowan M.D. 08/10/2021 11:53 AM
--- NOTE | 2021-08-10 12:41 | Hospitalist Progress Note ---
Date of Service August 10, 2021 Assessment & Plan (1) Congestive heart failure: Plan: Yonas Del Rosario is a 66-year-old female with past medical history of anxiety, depression, breast cancer for which she received doxorubicin, hyperlipidemia, hypothyroidism, osteoporosis, prediabetes who presented to [facility] for shortness of breath. Imaging and physical exam findings consistent with fluid overload concerning for new-onset CHF. New Dilated cardiomyopathy with acute HFrEF likely, new onset No known history of CAD, has hx of HTN but has not been on treatment for it EKGs do show some evidence of likely prior ischemia, BNP elevated at 2573 on admission Received Lasix 20 mg IV in ED Continue with Lasix 40 mg IV daily Monitor I's and O's, daily weights Echocardiogram 08/10: severely reduced systolic function with EF 20-25%. Severe global hypokinesis. Apical thrombus. Moderate mitral regurg. Moderate to severe tricuspid regurg. Moderate pulmonary HTN (RSVP 53 mmHg). Pleural effusion. Not on any ACEi/ARB, beta-mann Cardiology consulted, pending Left ventricle Thrombus - new - Started on anticoagulation with IV Heparin standard dose given apical thrombus Elevated troponin, improving Mild troponin elevation on admission - 39.3 --> 46.4 --> 36.[address] depression in anterolateral leads, which are visible in EKG from June 07, 2021 Remains w/o chest pain Cardiology consulted as above - already on statin. Elevated LFTs, improving CT findings of gallbladder wall thickening with adjacent stranding as well Likely secondary to fluid overload Remains w/o current abdominal/GI complaints LFTs are down trending; will continue to monitor Recommend outpatient f/u Right leg edema RLE Doppler 08/10: no evidence of DVT; popliteal cyst 8.3 x 2.0 x 7.3 cm favored to represent Tompkins's cyst Anxiety/depression/schizoid personality disorder Continue home venlafaxine Continue home lorazepam as needed Hyperlipidemia Continue home pravastatin 20 mg Lipid profile from 07/10/2021 showing total cholesterol 178, LDL 91, HDL 67 Hypothyroidism Continue home levothyroxine Asthma/bronchitis Continue home inhaler regimen Prediabetes A1c 5.8% on 07/10/21 Patient continues with impaired fasting glucose during admission Encourage lifestyle modification and will need outpatient PCP f/u DVT prophylaxis: IV Heparin Diet: Heart healthy, low-sodium Dispo: Admit to telemetry CODE STATUS: Full (2) Dyspnea: (3) Elevated troponin: (4) Hyperlipidemia: (5) Hypothyroidism: (6) Vitamin D deficiency: (7) Schizoid personality disorder, unspecified: (8) Polyp of colon, adenomatous: (9) Osteoporosis: (10) Breast cancer: (11) Anxiety: (12) Depression: Admission and Anticipated Discharge Date Admission Date: August 09, 2021 Supervising Physician Co-Signing Physician Notes Resident Physician Supervision Note: I independently interviewed and examined the patient and verified the good history and physical, reviewed labs and image studies and agree with resident Dr. Solorio findings and care plan. Subjective Patient seen and evaluated at bedside this morning. Notes that the progressive SOB she has been having over the past several months has slightly improved since admission to the hospital with lasix administration. Denies current SOB at rest. + orthopnea, slightly improved (has been using 2 pillows at home). To note, patient has had increased RLE swelling over the past week; denies RLE pain or cramping. Denies CP, abd pain, nausea, vomiting, fever, or chills. Review of Systems Review of Systems: See HPI Physical Exam Physical Exam: GENERAL: No acute distress. Well developed and well nourished. Vital signs reviewed as above. EYES: EOMI. Anicteric sclerae. HENT: Moist mucous membranes. RESPIRATORY: No respiratory distress. Unlabored respirations. Clear to auscultation bilaterally. No wheezing. CARDIOVASCULAR: Regular rate and rhythm. No murmurs. ABDOMEN: Soft, non-tender and non-distended. Normal bowel sounds. EXTREMITIES: 1+ non-pitting RLE edema. Trace LLE edema. Non-tender. SKIN: Warm, dry. No rashes or lesions. NEUROLOGIC: A/O x3. Normal speech. No focal neurological deficits. PSYCHIATRIC: Cooperative. Appropriate mood and affect. Results & Data Results & Data ([facility]) Vital Signs (Past 12 Hours) Vital Signs Temp Pulse Resp BP Pulse Ox 08/10/21 11:58 106 H 149/103 H 08/10/21 08:34 108 H 160/114 H 08/10/21 08:04 36.6 C 120 H 16 151/110 H 98 08/10/21 03:08 36.8 C 103 H 19 152/101 H 97 Laboratory Results 07/04/0208/10/21 08/10/21 Range/Units 10:32 06:07 03:27 WBC (4.8-10.8) K/uL RBC (4.2-5.4) M/uL Hgb (12.0-16.0) g/dL Hct (37-47) % MCV (80-100) fL MCH (25-34) pg MCHC (32-36) g/dL RDW Std Deviation (36.4-46.3) fL RDW Coeff of Jesse (11.5-14.5) % Plt Count (130-400) K/uL MPV (7.4-10.4) fL Immature Gran % (Auto) % Neut % (Auto) % Lymph % (Auto) % [place] % (Auto) % Eos % (Auto) % Baso % (Auto) % Neut # (Auto) (1.4-6.5) K/uL Lymph # (Auto) (1.2-3.4) K/uL [place] # (Auto) (0.11-0.59) K/uL Eos # (Auto) (0-0.5) K/uL Baso # (Auto) (0-0.2) K/uL Immature Gran # (Auto) (0.00-0.02) K/uL PT 11.9 (9.0-12.0) Seconds INR 1.1 (0.9-1.1) APTT 24.2 (21.0-31.0) Seconds PTT Ratio 0.9 Sodium 142 (136-145) mmol/L Potassium 3.8 (3.5-5.1) mmol/L Chloride 111 H (98-107) mmol/L Carbon Dioxide 22 (21-32) mmol/L Anion Gap 9 (3-11) BUN 38 H (6-23) mg/dl Creatinine 0.99 (0.6-1.2) mg/dl Est Cr Clr Drug Dosing 66.1 ml/min Est GFR ( Amer) 68.3 ml/min Est GFR (Non-Af Amer) 59.0 ml/min BUN/Creatinine Ratio 38.4 H (10-20) Glucose 107 H (70-99(Fasting)) mg/dl Calcium 8.9 (8.5-10.1) mg/dl Magnesium 1.9 (1.7-2.4) mg/dl Total Bilirubin 0.5 (0.2-1.0) mg/dl AST 33 (13-39) U/L ALT 61 H (7-52) U/L Alkaline Phosphatase 93 (34-104) U/L Troponin I High Sens (0-14) pg/ml B-Natriuretic Peptide (0-100) pg/ml Total Protein 6.1 (6.0-8.3) gm/dl Albumin 3.3 L (3.4-5.0) gm/dl Globulin 2.8 (2.5-4.0) gm/dl Albumin/Globulin Ratio 1.2 (0.9-2) TSH 1.579 SARS-CoV-2, RNA, NAAT (NEGATIVE) 08/10/21 08/10/21 08/10/21 Range/Units 03:27 03:27 03:27 WBC 8.43 (4.8-10.8) K/uL RBC 4.36 (4.2-5.4) M/uL Hgb 12.7 (12.0-16.0) g/dL Hct 39.0 (37-47) % MCV 89.4 (80-100) fL MCH 29.1 (25-34) pg MCHC 32.6 (32-36) g/dL RDW Std Deviation 46.1 (36.4-46.3) fL RDW Coeff of Jesse 14.0 (11.5-14.5) % Plt Count 236 (130-400) K/uL MPV 11.6 H (7.4-10.4) fL Immature Gran % (Auto) 0.1 % Neut % (Auto) 66.6 % Lymph % (Auto) 23.0 % [place] % (Auto) 9.0 % Eos % (Auto) 1.1 % Baso % (Auto) 0.2 % Neut # (Auto) 5.61 (1.4-6.5) K/uL Lymph # (Auto) 1.94 (1.2-3.4) K/uL [place] # (Auto) 0.76 H (0.11-0.59) K/uL Eos # (Auto) 0.09 (0-0.5) K/uL Baso # (Auto) 0.02 (0-0.2) K/uL Immature Gran # (Auto) 0.01 (0.00-0.02) K/uL PT (9.0-12.0) Seconds INR (0.9-1.1) APTT (21.0-31.0) Seconds PTT Ratio Sodium (136-145) mmol/L Potassium (3.5-5.1) mmol/L Chloride (98-107) mmol/L Carbon Dioxide (21-32) mmol/L Anion Gap (3-11) BUN (6-23) mg/dl Creatinine (0.6-1.2) mg/dl Est Cr Clr Drug Dosing ml/min Est GFR ( Amer) ml/min Est GFR (Non-Af Amer) ml/min BUN/Creatinine Ratio (10-20) Glucose (70-99(Fasting)) mg/dl Calcium (8.5-10.1) mg/dl Magnesium (1.7-2.4) mg/dl Total Bilirubin (0.2-1.0) mg/dl AST (13-39) U/L ALT (7-52) U/L Alkaline Phosphatase (34-104) U/L Troponin I High Sens 39.3 H (0-14) pg/ml B-Natriuretic Peptide (0-100) pg/ml Total Protein (6.0-8.3) gm/dl Albumin (3.4-5.0) gm/dl Globulin (2.5-4.0) gm/dl Albumin/Globulin Ratio (0.9-2) TSH Cancelled SARS-CoV-2, RNA, NAAT (NEGATIVE) 08/09/21 08/09/21 08/09/21 Range/Units 21:51 20:33 14:22 WBC (4.8-10.8) K/uL RBC (4.2-5.4) M/uL Hgb (12.0-16.0) g/dL Hct (37-47) % MCV (80-100) fL MCH (25-34) pg MCHC (32-36) g/dL RDW Std Deviation (36.4-46.3) fL RDW Coeff of Jesse (11.5-14.5) % Plt Count (130-400) K/uL MPV (7.4-10.4) fL Immature Gran % (Auto) % Neut % (Auto) % Lymph % (Auto) % [place] % (Auto) % Eos % (Auto) % Baso % (Auto) % Neut # (Auto) (1.4-6.5) K/uL Lymph # (Auto) (1.2-3.4) K/uL [place] # (Auto) (0.11-0.59) K/uL Eos # (Auto) (0-0.5) K/uL Baso # (Auto) (0-0.2) K/uL Immature Gran # (Auto) (0.00-0.02) K/uL PT (9.0-12.0) Seconds INR (0.9-1.1) APTT (21.0-31.0) Seconds PTT Ratio Sodium (136-145) mmol/L Potassium (3.5-5.1) mmol/L Chloride (98-107) mmol/L Carbon Dioxide (21-32) mmol/L Anion Gap (3-11) BUN (6-23) mg/dl Creatinine (0.6-1.2) mg/dl Est Cr Clr Drug Dosing ml/min Est GFR ( Amer) ml/min Est GFR (Non-Af Amer) ml/min BUN/Creatinine Ratio (10-20) Glucose (70-99(Fasting)) mg/dl Calcium (8.5-10.1) mg/dl Magnesium (1.7-2.4) mg/dl Total Bilirubin (0.2-1.0) mg/dl AST (13-39) U/L ALT (7-52) U/L Alkaline Phosphatase (34-104) U/L Troponin I High Sens 46.4 H (0-14) pg/ml B-Natriuretic Peptide 2573 H (0-100) pg/ml Total Protein (6.0-8.3) gm/dl Albumin (3.4-5.0) gm/dl Globulin (2.5-4.0) gm/dl Albumin/Globulin Ratio (0.9-2) TSH SARS-CoV-2, RNA, NAAT NEGATIVE (NEGATIVE) 08/09/21 08/09/21 08/09/21 Range/Units 14:22 14:22 14:22 WBC (4.8-10.8) K/uL RBC (4.2-5.4) M/uL Hgb (12.0-16.0) g/dL Hct (37-47) % MCV (80-100) fL MCH (25-34) pg MCHC (32-36) g/dL RDW Std Deviation (36.4-46.3) fL RDW Coeff of Jesse (11.5-14.5) % Plt Count (130-400) K/uL MPV (7.4-10.4) fL Immature Gran % (Auto) % Neut % (Auto) % Lymph % (Auto) % [place] % (Auto) % Eos % (Auto) % Baso % (Auto) % Neut # (Auto) (1.4-6.5) K/uL Lymph # (Auto) (1.2-3.4) K/uL [place] # (Auto) (0.11-0.59) K/uL Eos # (Auto) (0-0.5) K/uL Baso # (Auto) (0-0.2) K/uL Immature Gran # (Auto) (0.00-0.02) K/uL PT 12.7 H (9.0-12.0) Seconds INR 1.2 H (0.9-1.1) APTT 23.8 (21.0-31.0) Seconds PTT Ratio 0.9 Sodium 141 (136-145) mmol/L Potassium 4.0 (3.5-5.1) mmol/L Chloride 110 H (98-107) mmol/L Carbon Dioxide 25 (21-32) mmol/L Anion Gap 6 (3-11) BUN 42 H (6-23) mg/dl Creatinine 1.23 H (0.6-1.2) mg/dl Est Cr Clr Drug Dosing 53.4 ml/min Est GFR ( Amer) 52.6 ml/min Est GFR (Non-Af Amer) 45.4 ml/min BUN/Creatinine Ratio 34.1 H (10-20) Glucose 129 H (70-99(Fasting)) mg/dl Calcium 8.9 (8.5-10.1) mg/dl Magnesium 2.1 (1.7-2.4) mg/dl Total Bilirubin 0.5 (0.2-1.0) mg/dl AST 42 H (13-39) U/L ALT 73 H (7-52) U/L Alkaline Phosphatase 109 H (34-104) U/L Troponin I High Sens 36.9 H (0-14) pg/ml B-Natriuretic Peptide (0-100) pg/ml Total Protein 6.9 (6.0-8.3) gm/dl Albumin 3.7 (3.4-5.0) gm/dl Globulin 3.2 (2.5-4.0) gm/dl Albumin/Globulin Ratio 1.2 (0.9-2) TSH SARS-CoV-2, RNA, NAAT (NEGATIVE) 08/09/21 Range/Units 14:22 WBC 9.28 (4.8-10.8) K/uL RBC 4.83 (4.2-5.4) M/uL Hgb 13.9 (12.0-16.0) g/dL Hct 43.4 (37-47) % MCV 89.9 (80-100) fL MCH 28.8 (25-34) pg MCHC 32.0 (32-36) g/dL RDW Std Deviation 46.1 (36.4-46.3) fL RDW Coeff of Jesse 14.1 (11.5-14.5) % Plt Count 282 (130-400) K/uL MPV 11.5 H (7.4-10.4) fL Immature Gran % (Auto) 0.3 % Neut % (Auto) 69.3 % Lymph % (Auto) 19.9 % [place] % (Auto) 8.9 % Eos % (Auto) 1.3 % Baso % (Auto) 0.3 % Neut # (Auto) 6.42 (1.4-6.5) K/uL Lymph # (Auto) 1.85 (1.2-3.4) K/uL [place] # (Auto) 0.83 H (0.11-0.59) K/uL Eos # (Auto) 0.12 (0-0.5) K/uL Baso # (Auto) 0.03 (0-0.2) K/uL Immature Gran # (Auto) 0.03 H (0.00-0.02) K/uL PT (9.0-12.0) Seconds INR (0.9-1.1) APTT (21.0-31.0) Seconds PTT Ratio Sodium (136-145) mmol/L Potassium (3.5-5.1) mmol/L Chloride (98-107) mmol/L Carbon Dioxide (21-32) mmol/L Anion Gap (3-11) BUN (6-23) mg/dl Creatinine (0.6-1.2) mg/dl Est Cr Clr Drug Dosing ml/min Est GFR ( Amer) ml/min Est GFR (Non-Af Amer) ml/min BUN/Creatinine Ratio (10-20) Glucose (70-99(Fasting)) mg/dl Calcium (8.5-10.1) mg/dl Magnesium (1.7-2.4) mg/dl Total Bilirubin (0.2-1.0) mg/dl AST (13-39) U/L ALT (7-52) U/L Alkaline Phosphatase (34-104) U/L Troponin I High Sens (0-14) pg/ml B-Natriuretic Peptide (0-100) pg/ml Total Protein (6.0-8.3) gm/dl Albumin (3.4-5.0) gm/dl Globulin (2.5-4.0) gm/dl Albumin/Globulin Ratio (0.9-2) TSH SARS-CoV-2, RNA, NAAT (NEGATIVE) Diagnostic Findings [employer] [place] [place] [phone] Ultrasound Report Patient:YONAS DEL ROSARIO Admit Date:08/09/21 MR#:[id number] Address1:[address] [place] [address] Acct ID:[id number] Address2: Date:[address] [facility] Zip:[place] [address] Age:66 Location: Sex:F Room/Bed:[facility] Att Phy:Saranya Asher MD Diagnosis:NEW ONSET CHF Jenifer Phy:Lamberto Ortiz MD Service Date:08/10/21 Fam Phy: Interpreting Phy:Gautam Cowan MDAdmit Phy:Demond Knox MD Ordering Phy:Paty Solorio DO cc: ~ US venous doppler LE RT CLINICAL HISTORY: RLE swelling TECHNIQUE: Right lower extremity real-time compression venous ultrasound with Color Doppler imaging. Utilizing real-time ultrasonic imaging multiple real time high-resolution ultrasonic images with compression and noncompression maneuvers of the deep venous system in addition to color doppler imaging were performed from the common femoral vein through the proximal calf veins. COMPARISON: None available at the time of this dictation. FINDINGS: Currently there is normal compressibility of the deep venous system from the common femoral vein through the proximal calf veins. A popliteal cyst at lesion is seen measuring 8.3 x 2.0 x 7.3 cm. This is favored to represent a Tompkins's cyst. Impression: No evidence of deep venous thrombus. ACT 112: Negative or not required by law. Electronically signed by: Gautam Cowan M.D. 08/10/2021 11:53 AM Dictated:08/10/21 1152 Transcribed: 08/10/21 1152 Resident Activity Tracking Resident Involvement: Resident Care Provided Care Provided: Adult Hospital Medicine
--- NOTE | 2021-08-10 17:31 | Cardiology Consultation ---
Date of Consultation August 10, 2021 Assessment & Plan (1) Acute HFrEF (heart failure with reduced ejection fraction): (2) Cardiomyopathy: (3) Pulmonary hypertension: (4) Mitral regurgitation: (5) Tricuspid regurgitation: (6) Hypertension: (7) Hyperlipidemia: ASSESSMENT/PLAN: 1. Acute HFrEF: She appears hypervolemic. Continue diuretic therapy with a goal of 1-2 L net negative fluid balance today. Discussed importance of a low- sodium diet, less than 2000 mg daily. Strict I&Os. Daily weights. Recommend heart failure program and she is agreeable. Metoprolol succinate tomorrow. Start Entresto today. Start spironolactone. SGLT 2 inhibitor on discharge. 2. Cardiomyopathy: Discussed the diagnosis with her. Possibly due to prior use of doxorubicin. Cannot exclude CAD or coronary artery stenosis from previous left chest XRT. Medical therapy as above for now. Can consider cardiac catheterization after heart failure has not as part of ischemic evaluation. If LV systolic function does not significantly improve after optimal medical therapy in 3 months, could consider ICD for primary prevention. 3. Pulmonary hypertension: Likely due to left heart failure. Diurese as above. 4. Mitral regurgitation: Non severe. Can monitor over time. May improve with diuresis. 5. Tricuspid regurgitation: Will likely show some improvement with diuresis. Monitor over time. 6. Hypertension: Blood pressure has been elevated. Blood pressure should improve with diuresis and heart failure therapy as noted above. 7. Dyslipidemia: LDL has been reasonably controlled. If found to have CAD, would recommend high-intensity statin therapy if no contraindication. 8. Disposition: Cardiology will continue to follow. On discharge, follow-up with Dr. Sargent, her primary public defender, as well as heart failure program. Patient care communicated with Dr. Asher of the primary hospitalist service. Highly complex medical issues. Thank you for allowing me to participate in the care of your patient. Please call for any other questions or concerns. Sincerely, Junior Garcia M.D. History of Present Illness Reason for Consultation: New onset CHF, previous scheduled for stress test Requesting Physician: Demond Knox Attending Physician: Saranya Asher MD History of Present Illness Ms. Kerr is a very pleasant 66-year-old female with history significant for dyslipidemia, prediabetes, and breast cancer s/p mastectomy/XRT/chemotherapy including doxorubicin. Her primary public defender is Dr. Sargent. She was diagnosed with breast cancer in 1991 and underwent lumpectomy on the left and then later mastectomy for recurrence in 1998. She underwent 3 separate chemotherapy cycles per her report. The second and third cycles included doxorubicin. Her last chemotherapy was in 2000. She underwent left-sided XRT in 1991. Since May of 2021, she experienced wheezing in bed, stating that it felt like asthma. She remembers having asthma as a child. She felt better if she sat upright. She was seen by her PCP office and was given inhalers and antibiotic therapy. Symptoms improved. Eventually, she stopped using her inhaler as she was no longer experiencing benefit. Her shortness of breath has worsened to the point where she was not sleeping well. She tried to sleep in a chair, but unsuccessfully. She has noted swelling in her legs, specifically her right leg which is new. She has noted dyspnea with exertion as well. She denies chest discomfort. She has occasional palpitations. She denies syncope, near-syncope, melena, hematochezia, hematuria, or other bleeding. On presentation, she was diagnosed with CHF and given intravenous diuretic therapy. She states that she does not consume significant amounts of sodium. Her weight has been stable but she does not check it daily. Review of systems: As above. Review of systems otherwise negative/unremarkable. Family history: No known premature CAD. She has no siblings. Her father at 100 years of age. She has no remaining family per her report. Social history: She denies tobacco abuse. Rare alcohol. No drugs. She lives alone. She has not been . No children. No remaining family. She is retired from [employer]. Her friend, and, was present at the bedside. Allergies Allergy/AdvReac Type Severity Reaction Status Date / Time cephalexin Allergy Mild RASH Verified 08/09/21 21:31 Penicillins Allergy Mild UNKNOWN Verified 08/09/21 21:31 Cephalosporins Allergy Unknown RASH Verified 08/09/21 21:31 Home Medications Medication Instructions Recorded Confirmed Type calcium carbonate 600 mg calcium 600 mg PO BID 03/25/18 08/09/21 History (1,500 mg) tablet (Calcium) venlafaxine 150 mg 150 mg PO HS #90 cap 02/11/19 08/09/21 Rx capsule,extended release 24 hr (Effexor XR) venlafaxine 75 mg capsule,extended 75 mg PO HS cap 01/17/20 08/09/21 History release 24 hr (Effexor XR) cholecalciferol (vitamin D3) 50 50 mcg PO DAILY #30 cap 01/14/21 08/09/21 Rx mcg (2,000 unit) capsule albuterol sulfate 90 mcg/actuation 2 puff INHALATION Q6H PRN #6.7 g 05/17/21 08/09/21 Rx aerosol inhaler fluocinonide 0.05 % topical gel 1 applic TOP BID PRN gm 05/17/21 08/09/21 History mupirocin 2 % topical ointment 1 applic TOP BID PRN gm 05/17/21 08/09/21 History nystatin-triamcinolone 100,000 1 applic TOP BID PRN 05/17/21 08/09/21 History unit/gram-0.1 % topical ointment budesonide-formoterol HFA 80 1 inh INHALATION BID #10.2 g 06/07/21 08/09/21 Rx mcg-4.5 mcg/actuation aerosol inhaler (Symbicort) fluticasone propionate 50 2 spray INTRANASAL DAILY PRN g 06/18/21 08/09/21 History mcg/actuation nasal spray,suspension (Flonase Allergy Relief) lorazepam 0.5 mg tablet (Ativan) 0.5 mg PO DAILY PRN 06/21/21 08/09/21 History levothyroxine 75 mcg tablet 75 mcg PO DAILY #90 tab 07/11/21 08/09/21 Rx pravastatin 20 mg tablet 20 mg PO HS #90 tab 07/11/21 08/09/21 Rx Patient History Medical History (Updated 08/10/21 @ 17:39 by Nacho Garcia MD) Anxiety Artificial menopause state Breast cancer (~1991) Cardiomyopathy Depression Fracture of metatarsal bone Hearing deficit BL BAILEY History of breast cancer BL BREAST; CHEMO/RADIATION, MASTECTOMY Hyperlipidemia Hypothyroidism Limb alert care status PT HAD BL MASTECTOMY W/ LYMPH NODE EXCISION. PT REPORTS RT ARM IS OKAY FOR BP/IV STICKS. LEFT ARM RESTRICTED Osteopenia Osteoporosis Polyp of colon, adenomatous Prediabetes Spondylisthesis Vitamin D deficiency Surgical History History of adenoidectomy History of arthroscopy LEFT SHOULDER History of breast biopsy BL BREAST History of cataract surgery LEFT. 04/22/2018. 2mg versed. no issues. History of colonoscopy with polypectomy History of detached retina repair History of esophagogastroduodenoscopy (EGD) History of lumpectomy LEFT BREAST History of mastectomy BL BREAST; SEPARATE PROCEDURES History of tonsillectomy History of tooth extraction History of total abdominal hysterectomy and bilateral salpingo-oophorectomy History of vascular access device PT HAS A PORT Status post wrist surgery RT Family History Grandmother (Paternal) Family history of diabetes mellitus Retinal detachment Diabetes Father Colorectal cancer Hypertension Retinal detachment Diabetes Colon cancer Mother Ovarian cancer Parkinson disease Grandfather Colon cancer Grandmother (Maternal) Parkinson disease Other Breast cancer Denies family history of Prostate cancer Myocardial infarction Social History Smoking Status: Never smoker Second Hand Exposure: No; Do You Dip or Chew Tobacco: No; Hx Alcohol Use: Yes Alcohol type: beer and wine Hx Substance Use: No Preferred Language: Amharic 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 Ability: Effective Rn Liaison Required: No Beliefs That Will Affect Care: None marital status: Single Current Living Situation: Alone current occupational status: employed current occupation: [employer] Other Information That Helps Us Care for You: No Feels Safe at Home: Yes Safety Concerns: Feels Safe At This Time Childhood Exposure to Second-Hand Smoke: No Dental Care, Regularly: Yes Physical Activity Frequency: Does not Exercise Seatbelt Use: always Sunscreen Use: Yes Assistive Devices: Glasses and Hearing Aid - Right Physical Exam Physical Exam: Gen.: No acute distress. Alert and oriented. HEENT: Anicteric sclera. Neck: Elevated JVD. Hepatic jugular reflux noted. No bruits. Normal carotid upstrokes bilaterally. Cardiac: PMI was nondisplaced. No ventricular heave. Regular and mildly tachycardic. Short 5 beat run during auscultation (symptomatic). Normal S1-S2. No murmurs, rubs, or gallops. Pulmonary: Clear to auscultation bilaterally without wheezes, rales, or rhonchi. Abdomen: Soft, nontender, nondistended, with normoactive bowel sounds. No bruits noted. Extremities: 2+ radial pulses bilaterally. 2+ posterior tibialis pulses bilate rally. 1+ right lower extremity edema. Trace left lower extremity edema. No cyanosis. Psychiatric: Affect appears appropriate. Results & Data ([facility]) Vital Signs (Past 12 Hours) Vital Signs Temp Pulse Resp BP Pulse Ox 08/10/21 15:54 36.8 C 109 H 18 144/101 H 96 08/10/21 11:58 106 H 149/103 H 08/10/21 08:34 108 H 160/114 H 08/10/21 08:04 36.6 C 120 H 16 151/110 H 98 Intake & Output 08/08/21 08/09/21 08/10/21 08/11/21 06:59 06:59 06:59 06:59 Intake Total 480 / 480 250 / 250 Output Total 900 / 900 1450 / 1450 Balance -420 / -420 -1200 / -1200 Weight 207 lb 0.225 oz Laboratory Results Laboratory Results - last 24 hr 08/09/21 08/09/21 08/09/21 14:22 20:33 21:51 WBC RBC Hgb Hct MCV MCH MCHC RDW Std Deviation RDW Coeff of Jesse Plt Count MPV Immature Gran % (Auto) Neut % (Auto) Lymph % (Auto) Pike % (Auto) Eos % (Auto) Baso % (Auto) Neut # (Auto) Lymph # (Auto) Pike # (Auto) Eos # (Auto) Baso # (Auto) Immature Gran # (Auto) PT INR APTT PTT Ratio Sodium Potassium Chloride Carbon Dioxide Anion Gap BUN Creatinine Est Cr Clr Drug Dosing Est GFR ( Amer) Est GFR (Non-Af Amer) BUN/Creatinine Ratio Glucose Calcium Magnesium Total Bilirubin AST ALT Alkaline Phosphatase Troponin I High Sens 46.4 H B-Natriuretic Peptide 2573 H Total Protein Albumin Globulin Albumin/Globulin Ratio TSH SARS-CoV-2, RNA, NAAT NEGATIVE 08/10/21 08/10/21 08/10/21 03:27 03:27 03:27 WBC 8.43 RBC 4.36 Hgb 12.7 Hct 39.0 MCV 89.4 MCH 29.1 MCHC 32.6 RDW Std Deviation 46.1 RDW Coeff of Jesse 14.0 Plt Count 236 MPV 11.6 H Immature Gran % (Auto) 0.1 Neut % (Auto) 66.6 Lymph % (Auto) 23.0 Pike % (Auto) 9.0 Eos % (Auto) 1.1 Baso % (Auto) 0.2 Neut # (Auto) 5.61 Lymph # (Auto) 1.94 Pike # (Auto) 0.76 H Eos # (Auto) 0.09 Baso # (Auto) 0.02 Immature Gran # (Auto) 0.01 PT INR APTT PTT Ratio Sodium Potassium Chloride Carbon Dioxide Anion Gap BUN Creatinine Est Cr Clr Drug Dosing Est GFR ( Amer) Est GFR (Non-Af Amer) BUN/Creatinine Ratio Glucose Calcium Magnesium Total Bilirubin AST ALT Alkaline Phosphatase Troponin I High Sens 39.3 H B-Natriuretic Peptide Total Protein Albumin Globulin Albumin/Globulin Ratio TSH Cancelled SARS-CoV-2, RNA, NAAT 08/10/21 08/10/21 08/10/21 03:27 06:07 10:32 WBC RBC Hgb Hct MCV MCH MCHC RDW Std Deviation RDW Coeff of Jesse Plt Count MPV Immature Gran % (Auto) Neut % (Auto) Lymph % (Auto) Pike % (Auto) Eos % (Auto) Baso % (Auto) Neut # (Auto) Lymph # (Auto) Pike # (Auto) Eos # (Auto) Baso # (Auto) Immature Gran # (Auto) PT 11.9 INR 1.1 APTT 24.2 PTT Ratio 0.9 Sodium 142 Potassium 3.8 Chloride 111 H Carbon Dioxide 22 Anion Gap 9 BUN 38 H Creatinine 0.99 Est Cr Clr Drug Dosing 66.1 Est GFR ( Amer) 68.3 Est GFR (Non-Af Amer) 59.0 BUN/Creatinine Ratio 38.4 H Glucose 107 H Calcium 8.9 Magnesium 1.9 Total Bilirubin 0.5 AST 33 ALT 61 H Alkaline Phosphatase 93 Troponin I High Sens B-Natriuretic Peptide Total Protein 6.1 Albumin 3.3 L Globulin 2.8 Albumin/Globulin Ratio 1.2 TSH 1.579 SARS-CoV-2, RNA, NAAT Diagnostic Findings Telemetry personally reviewed: Sinus tachycardia. PVCs. Five beat atrial run. No ventricular arrhythmia noted. Echo 08/10/2021: Normal LV size. EF 20-25%. Severe global hypokinesis. Apical thrombus. Mildly reduced RV systolic function. Mild left atrial dilation. Moderate MR. Moderate to severe TR. RVSP 53. Pleural effusion. ECG personally reviewed 08/09/2021 at 2:15 p.m.: Sinus tachycardia 113 beats per minute. Inferolateral T-wave abnormality. Chest x-ray 08/09/2021: Small bilateral pleural effusions per Radiology. Chest CTA 08/09/2021: No PE. Pulmonary edema with moderate bilateral pleural effusions. Cardiomegaly. Medications Administered Current Inpatient Medications Acetaminophen (Acetaminophen 325 Mg Tab) 650 mg PO Q4H PRN PRN Reason: Pain or Fever Stop: 09/08/21 21:38 Al Hydrox/Mg Hydrox/Simethicone (Aluminum/Magnesium Susp 30 Ml Udc) 15 ml PO Q4H PRN PRN Reason: Dyspepsia Stop: 09/08/21 21:38 Albuterol (Albuterol Hfa 8 Gm Inhaler) 2 puffs INH Q6H PRN PRN Reason: shortness of breath or wheezing Stop: 09/08/21 21:38 Calcium Carbonate (Calcium Carbonate 1250mg Tab) 1,250 mg PO BID HEIDI Stop: 09/08/21 21:38 Last Admin: 08/10/21 08:37 Dose: 1,250 mg Documented by: Fluocinonide (Fluocinonide 0.05% Oint 15 Gm Tube) 1 appln EXT BID PRN PRN Reason: Rash Stop: 09/08/21 21:38 Fluticasone Propionate (Fluticasone Propionate Na Spr 16 Gm Btl) 2 sprays NA DAILY PRN PRN Reason: Nasal Congestion Stop: 09/08/21 21:38 Fluticasone/Vilanterol (Fluticasone/Vilanterol 100/25mcg 14 Puffs/Inhaler) 1 puffs INH DAILY HEIDI Stop: 09/09/21 08:59 Last Admin: 08/10/21 08:37 Dose: 1 puffs Documented by: Furosemide (Furosemide 40 Mg/4 Ml Vial) 40 mg IV DAILY [facility] Stop: 09/09/21 08:59 Last Admin: 08/10/21 08:35 Dose: 40 mg Documented by: Heparin Sodium/Dextrose (Heparin Sodium/Dextrose) 25,000 units in 500 mls @ 27 mls/hr IV .[id number] [facility]; Protocol Stop: 09/09/21 11:14 Last Admin: 08/10/21 11:19 Dose: 1,350 units/hr, 27 mls/hr Documented by: Levothyroxine Sodium (Levothyroxine Sodium 75 Mcg Tablet) 75 mcg PO DAILYBB [facility] Stop: 09/09/21 06:29 Last Admin: 08/10/21 05:46 Dose: 75 mcg Documented by: Lorazepam (Lorazepam 0.5 Mg Tab) 0.5 mg PO DAILY PRN PRN Reason: Anxiety Stop: 09/08/21 21:38 Metoprolol Succinate (Metoprolol Succ 25mg Ext Rel Tab) 25 mg PO QAM [facility] Stop: 09/10/21 08:59 Nitroglycerin (Nitroglycerin 2% Ointment 30gm Tube) 0.5 inch EXT Q6H HEIDI Stop: 09/09/21 00:00 Last Admin: 08/10/21 12:01 Dose: 0.5 inch Documented by: Nystatin/Triamcinolone Acetonide (Nystatin/Triamcin Oint 15 Gm Tube) 1 appln EXT BID PRN PRN Reason: Rash Stop: 09/08/21 21:38 Ondansetron HCl (Ondansetron Inj 2 Mg/Ml 2 Ml Vial) 4 mg IV Q6H PRN PRN Reason: Nausea Stop: 09/08/21 21:38 Polyethylene Glycol (Polyethylene (Miralax) 17 Gm Pack) 17 gm PO DAILY PRN PRN Reason: Constipation Stop: 09/08/21 21:38 Pravastatin Sodium (Pravastatin Sod 20 Mg Tab) 20 mg PO [facility] Stop: 09/08/21 21:38 Last Admin: 08/09/21 22:25 Dose: 20 mg Documented by: Venlafaxine HCl (Venlafaxine Hcl Xr 75 Mg Capxr) 75 mg PO QPM HEIDI Stop: 09/08/21 21:38 Last Admin: 08/09/21 22:25 Dose: 75 mg Documented by: Venlafaxine HCl (Venlafaxine Hcl Xr 150 Mg Capxr) 150 mg PO [facility] Stop: 09/08/21 21:38 Last Admin: 08/09/21 22:25 Dose: 150 mg Documented by: Vitamin D (Cholecalciferol 1,000 Units 25 Mcg Tab) 2,000 units PO DAILY [facility] Stop: 09/09/21 08:59 Last Admin: 08/10/21 08:37 Dose: 2,000 units Documented by: PG Care Time/CCT Total # of Minutes Spent Total Time Spent with Patient: Total time spent is greater than 50% in coordination of care (as documented) at patient's floor/unit and/or counseling patient: Coding Level of Care Code 74229 Initial Inpt Care Lvl 3 Diagnoses Acute HFrEF (heart failure with reduced ejection fraction) I50.21 Cardiomyopathy I42.9 Pulmonary hypertension I27.20 Mitral regurgitation I34.0 Tricuspid regurgitation I07.1 Hypertension I10 Hyperlipidemia E78.5
[2021-08-10 18:36] LABS: Partial Thromboplastin Ratio 2.3
[2021-08-10] MEDS: VENLAFAXINE HCL XR 150 MG CAPXR PO SCH (20:10)
[2021-08-10] MEDS: VENLAFAXINE HCL XR 75 MG CAPXR PO SCH (20:10)
[2021-08-10] MEDS: VALSARTAN/SACUBITRIL 26/24MG TAB PO SCH (20:12)
[2021-08-10] MEDS: PRAVASTATIN SOD 20 MG TAB PO SCH (20:15)
[2021-08-11] MEDS: HEPARIN SODIUM/DEXTROSE 25,000 UNITS/500 ML BAG IV SCH (05:03)
[2021-08-11] MEDS: LEVOTHYROXINE SODIUM 75 MCG TABLET PO SCH (05:05)
[2021-08-11] MEDS: NITROGLYCERIN 2% OINTMENT 30GM TUBE EXT SCH ×2 (05:10→12:17)
[2021-08-11 06:12] LABS: Hematocrit (blood only) 41.5 % (37-47); Hemoglobin 13.7 g/dL (12.0-16.0); Mean Corpuscular Hemoglobin 28.5 pg (25-34); Mean Corpuscular Volume 86.5 fL (80-100); Mean Platelet Volume 11.2 fL (7.4-10.4); Platelet Count 228 K/uL (130-400); RDW Coefficient of Variation 13.7 % (11.5-14.5); White Blood Count 10.34 K/uL (4.8-10.8)
[2021-08-11 06:35] LABS: Albumin Globulin Ratio 1.1 (0.9-2); Albumin Level 3.2 gm/dl (3.4-5.0); BUN Creatinine Ratio 32.2 (10-20); Bilirubin,Total 0.8 mg/dl (0.2-1.0); Calcium 8.9 mg/dl (8.5-10.1); Creatinine Clr Calc Pharmacy 72.7 ml/min; Est GFR (African American) 76.7 ml/min; Est GFR (Non-African American) 66.2 ml/min; Globulin 2.9 gm/dl (2.5-4.0); Potassium 3.9 mmol/L (3.5-5.1); Total Protein 6.1 gm/dl (6.0-8.3)
[2021-08-11 06:40] LABS: INR 1.2 (0.9-1.1); Partial Thromboplastin Ratio 3.9; Prothrombin Time 12.4 Seconds (9.0-12.0)
[2021-08-11 06:55] LABS: Partial Thromboplastin Time 107.6 Seconds (21.0-31.0)
[2021-08-11] MEDS: CALCIUM CARBONATE 1250MG TAB PO SCH ×2 (08:26→20:09)
[2021-08-11] MEDS: METOPROLOL SUCC 25MG EXT REL TAB PO SCH (08:26)
[2021-08-11] MEDS: CHOLECALCIFEROL 1,000 UNITS 25 MCG TAB PO SCH (08:27)
[2021-08-11] MEDS: FUROSEMIDE 40 MG/4 ML VIAL IV SCH (08:28)
[2021-08-11] MEDS: SPIRONOLACTONE 25 MG TAB PO SCH (08:28)
[2021-08-11] MEDS: FLUTICASONE/VILANTEROL 100/25MCG 14 PUFFS/INHALER INH SCH (08:28)
[2021-08-11] MEDS: VALSARTAN/SACUBITRIL 26/24MG TAB PO SCH ×2 (09:54→20:09)
--- NOTE | 2021-08-11 12:50 | Hospitalist Progress Note ---
Date of Service August 11, 2021 Assessment & Plan (1) Congestive heart failure: Plan: Faina Kerr is a 66-year-old female with past medical history of anxiety, depression, breast cancer for which she received doxorubicin, hyperlipidemia, hypothyroidism, osteoporosis, prediabetes who presented to [facility] for shortness of breath. Imaging and physical exam findings consistent with fluid overload concerning for new-onset CHF. New Dilated cardiomyopathy with acute HFrEF likely, new onset No known history of CAD, has hx of HTN but has not been on treatment for it EKGs do show some evidence of likely prior ischemia BNP elevated at 2573 on admission Echocardiogram 08/10: severely reduced systolic function with EF 20-25%. Severe global hypokinesis. Apical thrombus. Moderate mitral regurg. Moderate to severe tricuspid regurg. Moderate pulmonary HTN (RSVP 53 mmHg). Pleural effusion. Received Lasix 20 mg IV in ED Continue with Lasix 40 mg IV daily Monitor I's and O's, daily weights Cardiology consulted: continue diuresis with goal of 1-2 net negative fluid balance. Daily weights. Medical therapy w/ metoprolol succinate, Entresto, sprinolactone. Plan to start SGLT2 inhibitor on discharge. - Reinforce importance of low sodium diet ( < 2000mg salt daily) - Recommend heart failure program Left ventricle Thrombus - new - Started on anticoagulation with IV Heparin standard dose given apical thrombus - Per cardiology recommendations, plan to transition to Eliquis on discharge w/ anticoagulation therapy x3 months Elevated troponin, improving Mild troponin elevation on admission - 39.3 --> 46.4 --> 36.[address] depression in anterolateral leads, which are visible in EKG from June 07, 2021 Remains w/o chest pain Cardiology consulted as above - already on statin. Elevated LFTs, improving CT findings of gallbladder wall thickening with adjacent stranding as well Likely secondary to fluid overload Remains w/o current abdominal/GI complaints LFTs are down trending; will continue to monitor Recommend outpatient f/u Right leg edema RLE Doppler 08/10: no evidence of DVT; popliteal cyst 8.3 x 2.0 x 7.3 cm favored to represent Tompkins's cyst Anxiety/depression/schizoid personality disorder Continue home venlafaxine Continue home lorazepam as needed Hyperlipidemia Continue home pravastatin 20 mg Lipid profile from 07/10/2021 showing total cholesterol 178, LDL 91, HDL 67 Hypothyroidism Continue home levothyroxine Asthma/bronchitis Continue home inhaler regimen Prediabetes A1c 5.8% on 07/10/21 Patient continues with impaired fasting glucose during admission Encourage lifestyle modification and will need outpatient PCP f/u DVT prophylaxis: IV Heparin Diet: Heart healthy, low-sodium Dispo: Admit to telemetry CODE STATUS: Full (2) Dyspnea: (3) Elevated troponin: (4) Hyperlipidemia: (5) Hypothyroidism: (6) Vitamin D deficiency: (7) Schizoid personality disorder, unspecified: (8) Polyp of colon, adenomatous: (9) Osteoporosis: (10) Breast cancer: (11) Anxiety: (12) Depression: Admission and Anticipated Discharge Date Admission Date: August 09, 2021 Supervising Physician Co-Signing Physician Notes Resident Physician Supervision Note: I independently interviewed and examined the patient and verified the good history and physical, reviewed labs and image studies and agree with resident Dr. Solorio findings and care plan. Subjective Patient seen and evaluated at bedside. No acute events overnight. Reports that she is overall doing well. No specific complaints or concerns. Feels that presenting subjective c/o SOB has essentially resolved. Eating well. Sleeping fairly well. Denies CP, abd pain, nausea, vomiting, BAILEY, lightheadedness, or dizziness. Review of Systems Review of Systems: See HPI Physical Exam Physical Exam: GENERAL: No acute distress. Well developed and well nourished. Vital signs reviewed as above. EYES: EOMI. Anicteric sclerae. HENT: Moist mucous membranes. RESPIRATORY: No respiratory distress. Unlabored respirations. Clear to auscultation bilaterally. No wheezing. CARDIOVASCULAR: Regular rate and rhythm. No murmurs. 2+ pedal pulses bilaterally. EXTREMITIES: Non-tender. Trace b/l pedal edema. SKIN: Warm, dry. No rashes or lesions. NEUROLOGIC: A/O x3. Normal speech. No focal neurological deficits. PSYCHIATRIC: Cooperative. Appropriate mood and affect. Results & Data Results & Data ([facility]) Vital Signs (Past 12 Hours) Vital Signs Temp Pulse Resp BP Pulse Ox 08/11/21 11:41 36.9 C 93 H 18 136/89 93 08/11/21 06:35 36.8 C 56 L 18 117/70 94 08/11/21 03:28 36.5 C 68 18 111/62 96 Laboratory Results 08/11/21 08/11/21 08/11/21 Range/Units 05:58 05:58 05:58 WBC 10.34 (4.8-10.8) K/uL RBC 4.80 (4.2-5.4) M/uL Hgb 13.7 (12.0-16.0) g/dL Hct 41.5 (37-47) % MCV 86.5 (80-100) fL MCH 28.5 (25-34) pg MCHC 33.0 (32-36) g/dL RDW Std Deviation 43.0 (36.4-46.3) fL RDW Coeff of Jesse 13.7 (11.5-14.5) % Plt Count 228 (130-400) K/uL MPV 11.2 H (7.4-10.4) fL PT 12.4 H (9.0-12.0) Seconds INR 1.2 H (0.9-1.1) APTT 107.6 H* (21.0-31.0) Seconds PTT Ratio 3.9 Sodium 139 (136-145) mmol/L Potassium 3.9 (3.5-5.1) mmol/L Chloride 104 (98-107) mmol/L Carbon Dioxide 28 (21-32) mmol/L Anion Gap 7 (3-11) BUN 29 H (6-23) mg/dl Creatinine 0.90 (0.6-1.2) mg/dl Est Cr Clr Drug Dosing 72.7 ml/min Est GFR ( Amer) 76.7 ml/min Est GFR (Non-Af Amer) 66.2 ml/min BUN/Creatinine Ratio 32.2 H (10-20) Glucose 102 H (70-99(Fasting)) mg/dl Calcium 8.9 (8.5-10.1) mg/dl Total Bilirubin 0.8 (0.2-1.0) mg/dl AST 32 (13-39) U/L ALT 56 H (7-52) U/L Alkaline Phosphatase 89 (34-104) U/L Total Protein 6.1 (6.0-8.3) gm/dl Albumin 3.2 L (3.4-5.0) gm/dl Globulin 2.9 (2.5-4.0) gm/dl Albumin/Globulin Ratio 1.1 (0.9-2) 08/10/21 Range/Units 17:56 WBC (4.8-10.8) K/uL RBC (4.2-5.4) M/uL Hgb (12.0-16.0) g/dL Hct (37-47) % MCV (80-100) fL MCH (25-34) pg MCHC (32-36) g/dL RDW Std Deviation (36.4-46.3) fL RDW Coeff of Jesse (11.5-14.5) % Plt Count (130-400) K/uL MPV (7.4-10.4) fL PT (9.0-12.0) Seconds INR (0.9-1.1) APTT 64.0 H* (21.0-31.0) Seconds PTT Ratio 2.3 Sodium (136-145) mmol/L Potassium (3.5-5.1) mmol/L Chloride (98-107) mmol/L Carbon Dioxide (21-32) mmol/L Anion Gap (3-11) BUN (6-23) mg/dl Creatinine (0.6-1.2) mg/dl Est Cr Clr Drug Dosing ml/min Est GFR ( Amer) ml/min Est GFR (Non-Af Amer) ml/min BUN/Creatinine Ratio (10-20) Glucose (70-99(Fasting)) mg/dl Calcium (8.5-10.1) mg/dl Total Bilirubin (0.2-1.0) mg/dl AST (13-39) U/L ALT (7-52) U/L Alkaline Phosphatase (34-104) U/L Total Protein (6.0-8.3) gm/dl Albumin (3.4-5.0) gm/dl Globulin (2.5-4.0) gm/dl Albumin/Globulin Ratio (0.9-2) Resident Activity Tracking Resident Involvement: Resident Care Provided Care Provided: Adult Hospital Medicine
[2021-08-11 14:50] LABS: Partial Thromboplastin Ratio 2.1
[2021-08-11] MEDS ORDERED: FUROSEMIDE 40 MG/4 ML VIAL IV ONE (16:20)
--- NOTE | 2021-08-11 16:20 | Cardiology Progress Note ---
Date of Service August 11, 2021 Assessment & Plan (1) Acute HFrEF (heart failure with reduced ejection fraction): (2) Cardiomyopathy: (3) Pulmonary hypertension: (4) Mitral regurgitation: (5) Tricuspid regurgitation: (6) Hypertension: (7) Hyperlipidemia: (8) Left ventricular apical thrombus: Plan: ASSESSMENT/PLAN: 1. Acute HFrEF: Hypervolemic but improving. Will give another dose of Lasix 40 mg IV x1 as she has positive fluid balance so far today. Continue diuretic therapy with a goal of 1-2 L net negative fluid balance today. Low-sodium diet, less than 2000 mg daily. Strict I&Os. Daily weights. Recommend heart failure program and she is agreeable. Metoprolol succinate, Entresto and spironolactone have been initiated. Can titrate over time. SGLT 2 inhibitor on discharge. 2. Cardiomyopathy: Possibly due to prior use of doxorubicin. Cannot exclude CAD or coronary artery stenosis from previous left chest XRT. Medical therapy as above for now. Start aspirin in case underlying CAD. No urgent indication for cardiac catheterization but she inquired about risks. Risks and benefits were discussed with her in detail. May consider catheterization later this hospital stay. If LV systolic function does not significantly improve after op timal medical therapy in 3 months, could consider ICD for primary prevention. 3. Pulmonary hypertension: Likely due to left heart failure. Diurese as above. 4. Mitral regurgitation: Non severe. Can monitor over time. May improve with diuresis. 5. Tricuspid regurgitation: Will likely show some improvement with diuresis. Monitor over time. 6. Hypertension: Blood pressure improved with titration of medical therapy. Currently normal blood pressure. 7. Dyslipidemia: LDL has been reasonably controlled. If found to have CAD, would recommend high-intensity statin therapy if no contraindication. 8. Left ventricular apical thrombus: Continue heparin drip. On discharge, would consider Eliquis. 9. Disposition: Cardiology will continue to follow. On discharge, follow-up with Dr. Sargent, her primary index editor, as well as heart failure program. Patient care communicated with Dr. Asher of the primary hospitalist service. Admission and Anticipated Discharge Date Admission Date: August 09, 2021 Subjective Patient seen earlier today. She feels much better. She denies shortness of breath at rest and orthopnea. She noted mild dyspnea with exertion while walking in the hallway. She denies chest pain, palpitations, syncope, near- syncope, or bleeding. Review of systems: As above. She was alone in her hospital room. Physical Exam Physical Exam: Gen.: No acute distress. Alert and oriented. HEENT: Anicteric sclera. Neck: No appreciable JVD. Cardiac: PMI was nondisplaced. No ventricular heave. Regular. Normal rate. Normal S1-S2. No murmurs, rubs, or gallops. Pulmonary: Bibasilar rales, left greater than right. Abdomen: Soft, nontender, nondistended, with normoactive bowel sounds. No bruits noted. Extremities: 2+ radial pulses bilaterally. 2+ posterior tibialis pulses bilaterally. Trace bilateral lower extremity edema. No cyanosis. Psychiatric: Affect appears appropriate. Results & Data ([facility]) Vital Signs (Past 12 Hours) Vital Signs Temp Pulse Resp BP Pulse Ox 08/11/21 16:04 36.4 C L 86 18 110/77 98 08/11/21 11:41 36.9 C 93 H 18 136/89 93 08/11/21 06:35 36.8 C 56 L 18 117/70 94 Intake & Output 08/09/21 08/10/21 08/11/21 08/12/21 06:59 06:59 06:59 06:59 Intake Total 480 / 480 1328.8 / 1328.8 1527.967 / 1527.967 Output Total 1050 / 1050 2700 / 2700 1201 / 1201 Balance -570 / -570 -1371.2 / -1371.2 326.967 / 326.967 Weight 207 lb 0.225 oz 202 lb 13.204 oz Laboratory Results Laboratory Results - last 24 hr 08/10/21 08/11/21 08/11/21 17:56 05:58 05:58 WBC 10.34 RBC 4.80 Hgb 13.7 Hct 41.5 MCV 86.5 MCH 28.5 MCHC 33.0 RDW Std Deviation 43.0 RDW Coeff of Jesse 13.7 Plt Count 228 MPV 11.2 H PT 12.4 H INR 1.2 H APTT 64.0 H* 107.6 H* PTT Ratio 2.3 3.9 Sodium Potassium Chloride Carbon Dioxide Anion Gap BUN Creatinine Est Cr Clr Drug Dosing Est GFR ( Amer) Est GFR (Non-Af Amer) BUN/Creatinine Ratio Glucose Calcium Total Bilirubin AST ALT Alkaline Phosphatase Total Protein Albumin Globulin Albumin/Globulin Ratio 08/11/21 08/11/21 05:58 14:09 WBC RBC Hgb Hct MCV MCH MCHC RDW Std Deviation RDW Coeff of Jesse Plt Count MPV PT INR APTT 58.0 H* PTT Ratio 2.1 Sodium 139 Potassium 3.9 Chloride 104 Carbon Dioxide 28 Anion Gap 7 BUN 29 H Creatinine 0.90 Est Cr Clr Drug Dosing 72.7 Est GFR ( Amer) 76.7 Est GFR (Non-Af Amer) 66.2 BUN/Creatinine Ratio 32.2 H Glucose 102 H Calcium 8.9 Total Bilirubin 0.8 AST 32 ALT 56 H Alkaline Phosphatase 89 Total Protein 6.1 Albumin 3.2 L Globulin 2.9 Albumin/Globulin Ratio 1.1 Diagnostic Findings Telemetry personally reviewed: Sinus rhythm. No arrhythmia. Medications Administered Current Inpatient Medications Acetaminophen (Acetaminophen 325 Mg Tab) 650 mg PO Q4H PRN PRN Reason: Pain or Fever Stop: 09/08/21 21:38 Al Hydrox/Mg Hydrox/Simethicone (Aluminum/Magnesium Susp 30 Ml Udc) 15 ml PO Q4H PRN PRN Reason: Dyspepsia Stop: 09/08/21 21:38 Albuterol (Albuterol Hfa 8 Gm Inhaler) 2 puffs INH Q6H PRN PRN Reason: shortness of breath or wheezing Stop: 09/08/21 21:38 Calcium Carbonate (Calcium Carbonate 1250mg Tab) 1,250 mg PO BID [facility] Stop: 09/08/21 21:38 Last Admin: 08/11/21 08:26 Dose: 1,250 mg Documented by: Fluocinonide (Fluocinonide 0.05% Oint 15 Gm Tube) 1 appln EXT BID PRN PRN Reason: Rash Stop: 09/08/21 21:38 Fluticasone Propionate (Fluticasone Propionate Na Spr 16 Gm Btl) 2 sprays NA DAILY PRN PRN Reason: Nasal Congestion Stop: 09/08/21 21:38 Fluticasone/Vilanterol (Fluticasone/Vilanterol 100/25mcg 14 Puffs/Inhaler) 1 puffs INH DAILY [facility] Stop: 09/09/21 08:59 Last Admin: 08/11/21 08:28 Dose: 1 puffs Documented by: Furosemide (Furosemide 40 Mg/4 Ml Vial) 40 mg IV DAILY COUNT INCLUDES THE [facility] Stop: 09/09/21 08:59 Last Admin: 08/11/21 08:28 Dose: 40 mg Documented by: Furosemide (Furosemide 40 Mg/4 Ml Vial) 40 mg IV ONE ONE Stop: 08/11/21 16:21 Heparin Sodium/Dextrose (Heparin Sodium/Dextrose) 25,000 units in 500 mls @ 22 mls/hr IV .[id number] COUNT INCLUDES THE [facility]; Protocol Stop: 09/09/21 11:14 Last Titration: 08/11/21 15:19 Dose: 1,100 units/hr, 22 mls/hr Documented by: Levothyroxine Sodium (Levothyroxine Sodium 75 Mcg Tablet) 75 mcg PO DAILYBB COUNT INCLUDES THE [facility] Stop: 09/09/21 06:29 Last Admin: 08/11/21 05:05 Dose: 75 mcg Documented by: Lorazepam (Lorazepam 0.5 Mg Tab) 0.5 mg PO DAILY PRN PRN Reason: Anxiety Stop: 09/08/21 21:38 Metoprolol Succinate (Metoprolol Succ 25mg Ext Rel Tab) 25 mg PO QAM COUNT INCLUDES THE [facility] Stop: 09/10/21 08:59 Last Admin: 08/11/21 08:26 Dose: 25 mg Documented by: Nystatin/Triamcinolone Acetonide (Nystatin/Triamcin Oint 15 Gm Tube) 1 appln EXT BID PRN PRN Reason: Rash Stop: 09/08/21 21:38 Ondansetron HCl (Ondansetron Inj 2 Mg/Ml 2 Ml Vial) 4 mg IV Q6H PRN PRN Reason: Nausea Stop: 09/08/21 21:38 Polyethylene Glycol (Polyethylene (Miralax) 17 Gm Pack) 17 gm PO DAILY PRN PRN Reason: Constipation Stop: 09/08/21 21:38 Pravastatin Sodium (Pravastatin Sod 20 Mg Tab) 20 mg PO HS COUNT INCLUDES THE [facility] Stop: 09/08/21 21:38 Last Admin: 08/10/21 20:15 Dose: 20 mg Documented by: Sacubitril/Valsartan (Valsartan/Sacubitril 26/24mg Tab) 1 tab PO BID COUNT INCLUDES THE [facility] Stop: 09/09/21 20:59 Last Admin: 07/03/22 09:54 Dose: 1 tab Documented by: Spironolactone (Spironolactone 25 Mg Tab) 25 mg PO QAM [facility] Stop: 09/10/21 08:59 Last Admin: 08/11/21 08:28 Dose: 25 mg Documented by: Venlafaxine HCl (Venlafaxine Hcl Xr 75 Mg Capxr) 75 mg PO QPM [facility] Stop: 09/08/21 21:38 Last Admin: 08/10/21 20:10 Dose: 75 mg Documented by: Venlafaxine HCl (Venlafaxine Hcl Xr 150 Mg Capxr) 150 mg PO HS [facility] Stop: 09/08/21 21:38 Last Admin: 08/10/21 20:10 Dose: 150 mg Documented by: Vitamin D (Cholecalciferol 1,000 Units 25 Mcg Tab) 2,000 units PO DAILY [facility] Stop: 09/09/21 08:59 Last Admin: 08/11/21 08:27 Dose: 2,000 units Documented by: PG Care Time/CCT Total # of Minutes Spent Total Time Spent with Patient: Total time spent is greater than 50% in coordination of care (as documented) at patient's floor/unit and/or counseling patient: Coding Level of Care Code 24433 Subseq Hosp Care Lvl 3 Diagnoses Acute HFrEF (heart failure with reduced ejection fraction) I50.21 Cardiomyopathy I42.9 Pulmonary hypertension I27.20 Mitral regurgitation I34.0 Tricuspid regurgitation I07.1 Hypertension I10 Hyperlipidemia E78.5 Left ventricular apical thrombus I51.3
[2021-08-11] MEDS: ASPIRIN 81 MG ECTAB PO SCH (19:29)
[2021-08-11] MEDS: VENLAFAXINE HCL XR 150 MG CAPXR PO SCH (20:09)
[2021-08-11] MEDS: VENLAFAXINE HCL XR 75 MG CAPXR PO SCH (20:09)
[2021-08-11] MEDS: PRAVASTATIN SOD 20 MG TAB PO SCH (20:10)
[2021-08-11] MEDS ORDERED: MELATONIN 3 MG TAB PO PRN (21:27)
--- NOTE | 2021-08-11 22:07 | 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 Note ---
Date of Service: August 11, 2021 849pm. Notified of 4 beat run of [employer].
[2021-08-12] MEDS: HEPARIN SODIUM/DEXTROSE 25,000 UNITS/500 ML BAG IV SCH (04:06)
[2021-08-12] MEDS: LEVOTHYROXINE SODIUM 75 MCG TABLET PO SCH (06:12)
[2021-08-12] MEDS: SPIRONOLACTONE 25 MG TAB PO SCH (07:54)
[2021-08-12] MEDS: METOPROLOL SUCC 25MG EXT REL TAB PO SCH (07:55)
[2021-08-12] MEDS: VALSARTAN/SACUBITRIL 26/24MG TAB PO SCH ×2 (07:55→20:21)
[2021-08-12] MEDS: CALCIUM CARBONATE 1250MG TAB PO SCH ×2 (07:55→20:21)
[2021-08-12] MEDS: CHOLECALCIFEROL 1,000 UNITS 25 MCG TAB PO SCH (07:55)
[2021-08-12] MEDS: ASPIRIN 81 MG ECTAB PO SCH (07:55)
[2021-08-12] MEDS: FUROSEMIDE 40 MG/4 ML VIAL IV SCH (07:56)
[2021-08-12] MEDS: FLUTICASONE/VILANTEROL 100/25MCG 14 PUFFS/INHALER INH SCH (07:56)
[2021-08-12 08:03] LABS: BUN Creatinine Ratio 27.8 (10-20); Calcium 9.2 mg/dl (8.5-10.1); Creatinine Clr Calc Pharmacy 65.8 ml/min; Est GFR (Non-African American) 60.4 ml/min; Potassium 3.6 mmol/L (3.5-5.1)
[2021-08-12 09:51] LABS: Partial Thromboplastin Ratio 2.1
[2021-08-12 10:03] LABS: Partial Thromboplastin Time 58.2 Seconds (21.0-31.0)
[2021-08-12] MEDS ORDERED: FUROSEMIDE INJ 20 MG/2 ML VIAL IV ONE (15:16)
--- NOTE | 2021-08-12 15:22 | Hospitalist Progress Note ---
Date of Service August 12, 2021 Assessment & Plan (1) Congestive heart failure: Plan: 66yo F with PMHx of anxiety, depression, breast cancer for which she received doxorubicin, hyperlipidemia, hypothyroidism, osteoporosis, prediabetes who presented to [facility] for SOB. Imaging and physical exam findings consistent with fluid overload concerning for new-onset CHF. New Dilated cardiomyopathy with acute HFrEF likely, new onset possibly due to chronic doxorubicin use, cannot r/o CAD or carotid artery stenosis EKGs do show some evidence of likely prior ischemia BNP elevated at 2573 on admission Received Lasix 20 mg IV in ED Cont. with Lasix 40 mg IV daily; IV lasix 20mg x1 in afternoon Monitor I's/O's, daily weights Echocardiogram (08/10): severely reduced systolic function with EF 20-25%. Severe global hypokinesis. Apical thrombus. Moderate mitral regurg. Moderate to severe tricuspid regurg. Moderate pulmonary HTN (RSVP 53 mmHg). Pleural effusion. Cardiology consulted: continue diuresis with goal of 1-2L net negative fluid balance. Daily weights. Medical therapy w/ metoprolol succinate, Entresto, spironolactone, aspirin. Plan to start SGLT2 inhibitor on discharge. - Reinforce importance of low sodium diet ( < 2000mg salt daily) - Recommend heart failure program - will perform heart cath tomorrow to assess for CAD Left ventricle Thrombus - new - Cont. anticoagulation with IV Heparin standard dose given apical thrombus - Per cardiology recommendations, plan to transition to Eliquis on discharge w/ anticoagulation therapy x3 months Elevated troponin, peaked Mild troponin elevation on admission, peaked at [address] depression in anterolateral leads, which are visible in EKG from June 07, 2021 Remains w/o chest pain Cardiology consulted as above - cont. home statin. Elevated LFTs, improving CT findings of gallbladder wall thickening with adjacent stranding as well Likely secondary to fluid overload Remains w/o current abdominal/GI complaints LFTs are down trending; cont. to monitor Recommend outpatient f/u Right leg edema RLE Doppler 08/10: no evidence of DVT; popliteal cyst 8.3 x 2.0 x 7.3 cm favored to represent Tompkins's cyst Anxiety/depression/schizoid personality disorder Continue home venlafaxine Continue home lorazepam prn Hyperlipidemia Continue home pravastatin Hypothyroidism Continue home levothyroxine Asthma/bronchitis Continue home inhaler regimen Prediabetes A1c 5.8% on 07/10/21 Patient continues with impaired fasting glucose during admission Encourage lifestyle modification and will need outpatient PCP f/u DVT ppx: IV Heparin Diet: Heart healthy, low-sodium Code Status: Full Dispo: med tele (2) Dyspnea: (3) Elevated troponin: (4) Hyperlipidemia: (5) Hypothyroidism: (6) Vitamin D deficiency: (7) Schizoid personality disorder, unspecified: (8) Polyp of colon, adenomatous: (9) Osteoporosis: (10) Breast cancer: (11) Anxiety: (12) Depression: Admission and Anticipated Discharge Date Admission Date: August 09, 2021 Supervising Physician Co-Signing Physician Notes I personally examined the patient and verified all good points of history and exam, discussed case, and agree with decision making with Dr Beltran feeling better breathing better. for [facility] tomorrow. d/w cardiology input appreciated vitals noted nad heent nc at mmm breathing unlabored no accessory muscles lungs clear no r/r/w good effort acute HFrEF - ongoing diuresis. will need chornic med management as well. started to educate on Na restriction and importance thereof systolic cardiomyopathy - most likley doxyrubicin induced but definitely agree w [facility] given possibility of CAD otherwise as above Subjective Seen at bedside this morning. Pt says she feels better today. Denies dyspnea, chest pain, N/V, headache. Having adequate urine output. Review of Systems Review of Systems: All systems reviewed & are unremarkable except as noted in HPI & below Physical Exam Physical Exam: GENERAL: No acute distress. Vital signs reviewed as above. EYES: EOMI. Anicteric sclerae. HENT: Moist mucous membranes. RESPIRATORY: No respiratory distress. Unlabored respirations. Clear to auscul tation bilaterally. No wheezing. CARDIOVASCULAR: RRR. No murmurs. 2+ pedal pulses bilaterally. EXTREMITIES: Non-tender. Trace b/l pedal edema. SKIN: Warm, dry. No rashes or lesions. NEUROLOGIC: A/O x3. Normal speech. No focal neurological deficits. PSYCHIATRIC: Cooperative. Appropriate mood and affect. Results & Data Results & Data ([facility]) Vital Signs (Past 12 Hours) Vital Signs Temp Pulse Pulse Resp BP BP Pulse Ox 08/12/21 11:15 36.4 C L 76 18 100/68 97 08/12/21 08:06 36.4 C L 87 18 116/78 93 08/12/21 08:00 81 08/12/21 04:21 84 08/12/21 04:19 97 08/12/21 04:12 116/70 131/70 08/12/21 04:10 36.6 C 18 163/101 H Laboratory Results 08/12/21 08/12/21 Range/Units 08:55 06:56 APTT 58.2 H* (21.0-31.0) Seconds PTT Ratio 2.1 Sodium 139 (136-145) mmol/L Potassium 3.6 (3.5-5.1) mmol/L Chloride 101 (98-107) mmol/L Carbon Dioxide 31 (21-32) mmol/L Anion Gap 7 (3-11) BUN 27 H (6-23) mg/dl Creatinine 0.97 (0.6-1.2) mg/dl Est Cr Clr Drug Dosing 65.8 ml/min Est GFR ( Amer) 70.0 ml/min Est GFR (Non-Af Amer) 60.4 ml/min BUN/Creatinine Ratio 27.8 H (10-20) Glucose 100 H (70-99(Fasting)) mg/dl Calcium 9.2 (8.5-10.1) mg/dl Resident Activity Tracking Resident Involvement: Resident Care Provided Care Provided: Adult Hospital Medicine
--- NOTE | 2021-08-12 16:54 | Cardiology Progress Note ---
Date of Service August 12, 2021 Assessment & Plan (1) Acute HFrEF (heart failure with reduced ejection fraction): (2) Cardiomyopathy: (3) Pulmonary hypertension: (4) Mitral regurgitation: (5) Tricuspid regurgitation: (6) Hypertension: (7) Hyperlipidemia: (8) Left ventricular apical thrombus: Plan: ASSESSMENT/PLAN: 1. Acute HFrEF: She does not appear to be significantly hypervolemic and nearing euvolemia. Can continue diuresis but anticipate changing to p.o. soon. Low-sodium diet, less than 2000 mg daily. Strict I&Os. Daily weights. Recommend heart failure program and she is agreeable. Metoprolol succinate, Entresto and spironolactone have been initiated. Can titrate over time. SGLT 2 inhibitor on discharge. 2. Cardiomyopathy: Possibly due to prior use of doxorubicin. Cannot exclude CAD or coronary artery stenosis from previous left chest XRT. Medical therapy as above for now. Start aspirin in case underlying CAD. Discussed cardiac catheterization again and she is agreeable. She was made aware that CT surgery is not available at this facility. Cardiac catheterization likely to occur tomorrow. If LV systolic function does not significantly improve after optimal medical therapy in 3 months, could consider ICD for primary prevention. 3. Pulmonary hypertension: Likely due to left heart failure. 4. Mitral regurgitation: Non severe. Can monitor over time. May improve with diuresis. 5. Tricuspid regurgitation: Will likely show some improvement with diuresis. Monitor over time. 6. Hypertension: Blood pressure improved with titration of medical therapy. Blood pressure well controlled. 7. Dyslipidemia: LDL has been reasonably controlled. If found to have CAD, would recommend high-intensity statin therapy if no contraindication. 8. Left ventricular apical thrombus: Continue heparin drip. On discharge, isiah ornelas consider Eliquis. 9. Disposition: Cardiology will continue to follow. On discharge, follow-up with Dr. Sargent, her primary instrument setter, as well as heart failure program. Patient care communicated with Dr. Gooden of the primary hospitalist service. Admission and Anticipated Discharge Date Admission Date: August 09, 2021 Subjective Patient denies shortness of breath. She was able to lay flat without orthopnea. She did not yet walked in the hallway when she was seen earlier today. She denies palpitations, chest pain, syncope, near-syncope, or bleeding. She feels tired. Her friend, Brooklynn, was present at the bedside. Review of systems: As above. Physical Exam Physical Exam: Gen.: No acute distress. Alert and oriented. HEENT: Anicteric sclera. Neck: No appreciable JVD. Cardiac: PMI was nondisplaced. No ventricular heave. Regular. Normal rate. Normal S1-S2. No murmurs, rubs, or gallops. Pulmonary: Bibasilar rales, more prominent on the left. Abdomen: Soft, nontender, nondistended, with normoactive bowel sounds. No bruits noted. Extremities: 2+ radial pulses bilaterally. 2+ posterior tibialis pulses bilaterally. Trace bilateral lower extremity edema. No cyanosis. Psychiatric: Affect appears appropriate. Results & Data ([facility]) Vital Signs (Past 12 Hours) Vital Signs Temp Pulse Pulse Resp BP Pulse Ox 08/12/21 15:48 85 08/12/21 15:25 36.6 C 85 18 107/73 96 08/12/21 11:15 36.4 C L 76 18 100/68 97 08/12/21 08:06 36.4 C L 87 18 116/78 93 08/12/21 08:00 81 Intake & Output 08/10/21 08/11/21 08/12/21 08/13/21 06:59 06:59 06:59 06:59 Intake Total 480 / 480 1328.8 / 1328.8 2709.200 / 2709.200 67.833 / 67.833 Output Total 1050 / 1050 2700 / 2700 3751 / 3751 900 / 900 Balance -570 / -570 -1371.2 / -1371.2 -1041.800 / -1041.800 -832.167 / -832.167 Weight 207 lb 0.225 oz 202 lb 13.204 oz 196 lb 13.965 oz Laboratory Results Laboratory Results - last 24 hr 08/12/21 08/12/21 06:56 08:55 APTT 58.2 H* PTT Ratio 2.1 Sodium 139 Potassium 3.6 Chloride 101 Carbon Dioxide 31 Anion Gap 7 BUN 27 H Creatinine 0.97 Est Cr Clr Drug Dosing 65.8 Est GFR ( Amer) 70.0 Est GFR (Non-Af Amer) 60.4 BUN/Creatinine Ratio 27.8 H Glucose 100 H Calcium 9.2 Diagnostic Findings Telemetry personally reviewed: Sinus rhythm. No sustained arrhythmia. Medications Administered Current Inpatient Medications Acetaminophen (Acetaminophen 325 Mg Tab) 650 mg PO Q4H PRN PRN Reason: Pain or Fever Stop: 09/08/21 21:38 Al Hydrox/Mg Hydrox/Simethicone (Aluminum/Magnesium Susp 30 Ml Udc) 15 ml PO Q4H PRN PRN Reason: Dyspepsia Stop: 09/08/21 21:38 Albuterol (Albuterol Hfa 8 Gm Inhaler) 2 puffs INH Q6H PRN PRN Reason: shortness of breath or wheezing Stop: 09/08/21 21:38 Aspirin (Aspirin 81 Mg Ectab) 81 mg PO QAM [facility] Stop: 09/10/21 16:29 Last Admin: 08/12/21 07:55 Dose: 81 mg Documented by: Calcium Carbonate (Calcium Carbonate 1250mg Tab) 1,250 mg PO BID [facility] Stop: 09/08/21 21:38 Last Admin: 08/12/21 07:55 Dose: 1,250 mg Documented by: Fluocinonide (Fluocinonide 0.05% Oint 15 Gm Tube) 1 appln EXT BID PRN PRN Reason: Rash Stop: 09/08/21 21:38 Fluticasone Propionate (Fluticasone Propionate Na Spr 16 Gm Btl) 2 sprays NA DAILY PRN PRN Reason: Nasal Congestion Stop: 09/08/21 21:38 Fluticasone/Vilanterol (Fluticasone/Vilanterol 100/25mcg 14 Puffs/Inhaler) 1 puffs INH DAILY [facility] Stop: 09/09/21 08:59 Last Admin: 08/12/21 07:56 Dose: 1 puffs Documented by: Furosemide (Furosemide 40 Mg/4 Ml Vial) 40 mg IV DAILY [facility] Stop: 09/09/21 08:59 Last Admin: 08/12/21 07:56 Dose: 40 mg Documented by: Heparin Sodium/Dextrose (Heparin Sodium/Dextrose) 25,000 units in 500 mls @ 22 mls/hr IV .[id number] [facility]; Protocol Stop: 09/09/21 11:14 Last Titration: 08/12/21 07:11 Dose: 1,100 units/hr, 22 mls/hr Documented by: Levothyroxine Sodium (Levothyroxine Sodium 75 Mcg Tablet) 75 mcg PO DAILYBB [facility] Stop: 09/09/21 06:29 Last Admin: 08/12/21 06:12 Dose: 75 mcg Documented by: Lorazepam (Lorazepam 0.5 Mg Tab) 0.5 mg PO DAILY PRN PRN Reason: Anxiety Stop: 09/08/21 21:38 Melatonin (Melatonin 3 Mg Tab) 3 mg PO HS PRN PRN Reason: Sleep Stop: 09/10/21 21:26 Last Admin: 08/11/21 21:58 Dose: 3 mg Documented by: Metoprolol Succinate (Metoprolol Succ 25mg Ext Rel Tab) 25 mg PO QAM [facility] Stop: 09/10/21 08:59 Last Admin: 08/12/21 07:55 Dose: 25 mg Documented by: Nystatin/Triamcinolone Acetonide (Nystatin/Triamcin Oint 15 Gm Tube) 1 appln EXT BID PRN PRN Reason: Rash Stop: 09/08/21 21:38 Ondansetron HCl (Ondansetron Inj 2 Mg/Ml 2 Ml Vial) 4 mg IV Q6H PRN PRN Reason: Nausea Stop: 09/08/21 21:38 Polyethylene Glycol (Polyethylene (Miralax) 17 Gm Pack) 17 gm PO DAILY PRN PRN Reason: Constipation Stop: 09/08/21 21:38 Pravastatin Sodium (Pravastatin Sod 20 Mg Tab) 20 mg PO HS [facility] Stop: 09/08/21 21:38 Last Admin: 08/11/21 20:10 Dose: 20 mg Documented by: Sacubitril/Valsartan (Valsartan/Sacubitril 26/24mg Tab) 1 tab PO BID [facility] Stop: 09/09/21 20:59 Last Admin: 08/12/21 07:55 Dose: 1 tab Documented by: Spironolactone (Spironolactone 25 Mg Tab) 25 mg PO QAM [facility] Stop: 09/10/21 08:59 Last Admin: 08/12/21 07:54 Dose: 25 mg Documented by: Venlafaxine HCl (Venlafaxine Hcl Xr 75 Mg Capxr) 75 mg PO QPM [facility] Stop: 09/08/21 21:38 Last Admin: 08/11/21 20:09 Dose: 75 mg Documented by: Venlafaxine HCl (Venlafaxine Hcl Xr 150 Mg Capxr) 150 mg PO HS [facility] Stop: 09/08/21 21:38 Last Admin: 08/11/21 20:09 Dose: 150 mg Documented by: Vitamin D (Cholecalciferol 1,000 Units 25 Mcg Tab) 2,000 units PO DAILY [facility] Stop: 09/09/21 08:59 Last Admin: 08/12/21 07:55 Dose: 2,000 units Documented by: PG Care Time/CCT Total # of Minutes Spent Total Time Spent with Patient: Total time spent is greater than 50% in coordination of care (as documented) at patient's floor/unit and/or counseling patient: Coding Level of Care Code 36552 Subseq Hosp Care Lvl 3 Diagnoses Acute HFrEF (heart failure with reduced ejection fraction) I50.21 Cardiomyopathy I42.9 Pulmonary hypertension I27.20 Mitral regurgitation I34.0 Tricuspid regurgitation I07.1 Hypertension I10 Hyperlipidemia E78.5 Left ventricular apical thrombus I51.3
--- NOTE | 2021-08-12 16:58 | Billing Data ---
Date of Service August 12, 2021 Coding Level of Care Code 66060 Subseq Hosp Care Lvl 3
[2021-08-12] MEDS: VENLAFAXINE HCL XR 75 MG CAPXR PO SCH (20:20)
[2021-08-12] MEDS: PRAVASTATIN SOD 20 MG TAB PO SCH (20:20)
[2021-08-12] MEDS: VENLAFAXINE HCL XR 150 MG CAPXR PO SCH (20:20)
[2021-08-13] MEDS: HEPARIN SODIUM/DEXTROSE 25,000 UNITS/500 ML BAG IV SCH ×2 (02:50→03:52)
[2021-08-13] MEDS: LEVOTHYROXINE SODIUM 75 MCG TABLET PO SCH (05:53)
[2021-08-13 06:22] LABS: Partial Thromboplastin Ratio 2.2
[2021-08-13 06:24] LABS: Partial Thromboplastin Time 61.5 Seconds (21.0-31.0)
[2021-08-13 06:35] LABS: BUN Creatinine Ratio 29.6 (10-20); Calcium 9.6 mg/dl (8.5-10.1); Creatinine Clr Calc Pharmacy 59.1 ml/min; Est GFR (African American) 61.5 ml/min; Est GFR (Non-African American) 53.1 ml/min; Potassium 4.1 mmol/L (3.5-5.1)
[2021-08-13] MEDS: ASPIRIN 81 MG ECTAB PO SCH (08:58)
[2021-08-13] MEDS: CALCIUM CARBONATE 1250MG TAB PO SCH (08:58)
[2021-08-13] MEDS: FLUTICASONE/VILANTEROL 100/25MCG 14 PUFFS/INHALER INH SCH (08:58)
[2021-08-13] MEDS: CHOLECALCIFEROL 1,000 UNITS 25 MCG TAB PO SCH (08:58)
[2021-08-13] MEDS: METOPROLOL SUCC 25MG EXT REL TAB PO SCH (08:59)
[2021-08-13] MEDS: VALSARTAN/SACUBITRIL 26/24MG TAB PO SCH (08:59)
[2021-08-13] MEDS: SPIRONOLACTONE 25 MG TAB PO SCH (09:52)
--- NOTE | 2021-08-13 11:07 | Pre Anesthesia Assessment ---
Date of Service August 13, 2021 Pre Sedation Assessment Vital Signs Temp Pulse Pulse Resp BP Pulse Ox Pulse Ox 08/13/21 10:57 86 20 111/77 96 08/13/21 08:35 98 H 08/13/21 07:12 36.6 C 82 16 113/78 97 08/13/21 03:00 37.0 C 80 18 120/74 95 08/12/21 23:27 37.0 C 90 18 104/69 95 08/12/21 22:30 98 H 08/12/21 21:39 97 08/12/21 20:18 99 H 113/74 08/12/21 19:00 36.4 C L 95 H 16 104/72 97 08/12/21 15:48 85 08/12/21 15:25 36.6 C 85 18 107/73 96 08/12/21 11:15 36.4 C L 76 18 100/68 97 Cardiovascular + regular rate Respiratory + crackles Pre-Sedation Airway Assessment Smoking Status: Never smoker Hx Sleep Apnea: No Short, Thick Neck: No Thyromental Distance: > or= 3.5 Finger Breadths Oral Cavity: + WNL Mallampati Class: II ASA: ASA3 NPO Status Date of Last Intake of Fluids: 08/13/21 Time of Last Intake of Fluids: 08:00 Date of Last Intake of Solid Food: 08/12/21 Time of Last Intake of Solid Foods: 20:00 Procedure Planning Contraindications for Sedation: none Current Medications Reviewed: Yes Notes The planned sedation has been discussed with the patient. Informed Consent was obtained. I have identified the patient, determined the appropriateness of sedation and have assessed the patient immediately prior to the procedure. All medicine(s) and interventions are by my order.
--- NOTE | 2021-08-13 11:12 | Cardiology Progress Note ---
Date of Service August 13, 2021 Assessment & Plan (1) Acute HFrEF (heart failure with reduced ejection fraction): (2) Cardiomyopathy: (3) Pulmonary hypertension: (4) Mitral regurgitation: (5) Tricuspid regurgitation: (6) Hypertension: (7) Hyperlipidemia: (8) Left ventricular apical thrombus: (9) CAD (coronary artery disease): Plan: ASSESSMENT/PLAN: 1. Acute HFrEF: She appears euvolemic. Filling pressures are borderline elevated. Discontinue intravenous diuretic and start Lasix 40 mg p.o. daily tomorrow. Metoprolol succinate, Entresto and spironolactone have been initiated. Can titrate over time. SGLT 2 inhibitor on discharge. Low-sodium diet, less than 2000 mg daily. Strict I&Os while hospitalized. Daily weights here and at home. Heart failure program follow-up. 2. Cardiomyopathy: Nonischemic. Likely due to doxorubicin. Heart failure therapy as above. LV systolic function does not significantly improve after optimal medical therapy in 3 months, could consider ICD for primary prevention. 3. Pulmonary hypertension: Likely due to left heart failure. PA pressure improved based on right heart catheterization finding compared to echo findings, after diuresis. Pulmonary hypertension is very mild at this point. 4. Mitral regurgitation: Non severe. Can monitor over time. May improve with diuresis. 5. Tricuspid regurgitation: Will likely show some improvement with diuresis. Monitor over time. 6. Hypertension: Blood pressure well controlled. Continue current regimen as above. 7. CAD: Nonobstructive. Risk factor modification. High-intensity statin therapy in place of pravastatin. 8. Dyslipidemia: Replace pravastatin with atorvastatin 40 mg daily. 9. Left ventricular apical thrombus: Recommend resuming anticoagulation therapy tomorrow. Can start Eliquis 5 mg twice daily. 10. Disposition: Can be discharged home from a cardiac perspective after recovers from cardiac catheterization procedure, likely this evening, if continues to do well. Follow-up with Dr. Sargent, her primary potato inspector, as well as heart failure program. Patient care and discharge cardiac medications communicated with Dr. Gooden of the primary hospitalist service. Admission and Anticipated Discharge Date Admission Date: August 09, 2021 Subjective Patient slept well. She denies shortness of breath. She was able to ambulate in the hallway without dyspnea. She feels back to baseline. She denies palpitations, chest pain, syncope, near-syncope, or bleeding. Review of systems: As above. Physical Exam Physical Exam: Gen.: No acute distress. Alert and oriented. HEENT: Anicteric sclera. Neck: No JVD. Cardiac: No ventricular heave. Regular with ectopy. Normal S1-S2. No murmurs, rubs, or gallops. Pulmonary: Bibasilar crackles, predominantly on the left. They have remained stable. Abdomen: Soft, nontender, nondistended, with normoactive bowel sounds. No bruits noted. Extremities: 2+ radial pulses bilaterally. 2+ posterior tibialis pulses bilaterally. No significant edema. No cyanosis. Psychiatric: Affect appears appropriate. Results & Data ([facility]) Vital Signs (Past 12 Hours) Vital Signs Temp Pulse Pulse Resp BP Pulse Ox 08/13/21 10:57 86 20 111/77 96 08/13/21 08:35 98 H 08/13/21 07:12 36.6 C 82 16 113/78 97 08/13/21 03:00 37.0 C 80 18 120/74 95 08/12/21 23:27 37.0 C 90 18 104/69 95 Intake & Output 08/11/21 08/12/21 08/13/21 08/14/21 06:59 06:59 06:59 06:59 Intake Total 1328.8 / 1328.8 2709.200 / 2709.200 1297.733 / 1297.733 74.8 / 74.8 Output Total 2700 / 2700 3751 / 3751 1700 / 1700 Balance -1371.2 / -1371.2 -1041.800 / -1041.800 -402.267 / -402.267 74.8 / 74.8 Weight 202 lb 13.204 oz 196 lb 13.965 oz Laboratory Results Laboratory Results - last 24 hr 08/13/21 08/13/21 05:16 05:16 APTT 61.5 H* PTT Ratio 2.2 Sodium 140 Potassium 4.1 Chloride 101 Carbon Dioxide 31 Anion Gap 8 BUN 32 H Creatinine 1.08 Est Cr Clr Drug Dosing 59.1 Est GFR ( Amer) 61.5 Est GFR (Non-Af Amer) 53.1 BUN/Creatinine Ratio 29.6 H Glucose 103 H Calcium 9.6 Diagnostic Findings Cardiac catheterization 08/13/2021: Coronary angiography: 1. Left main: Ostial/proximal left main 20% narrowing. 2. Left anterior descending: Large-caliber vessel that wraps around the apex. Proximal LAD 20 to 30%. Small D1, D2, D3 vessels. 3. Circumflex: Codominant. Luminal irregularities within the proximal to mid circumflex. Very small caliber OM1. Large OM 2. Small caliber circumflex PDA. 4. Right coronary artery: RCA is large and codominant. Early mid RCA 20 to 30%. Late mid RCA 20%. Otherwise, luminal irregularities. PDA and PL branches without significant CAD. Right heart catheterization: 1. Pulmonary capillary wedge pressure: V wave 18 with a mean of 15 mmHg. 2. PA pressure: 37/15 with a mean of 22 mmHg. 3. Right ventricular pressure: 38/11 with EDP of 13 mmHg. 4. Right atrial pressure: A-wave 13, V wave 11, mean 10 mmHg. Significant respiratory variation. 5. Cardiac output via thermodilution was 3.3 L/min with a cardiac index of 1.62 L/min/m. 6. PVR 2.12 Wood units. Medications Administered Current Inpatient Medications Acetaminophen (Acetaminophen 325 Mg Tab) 650 mg PO Q4H PRN PRN Reason: Pain or Fever Stop: 09/08/21 21:38 Al Hydrox/Mg Hydrox/Simethicone (Aluminum/Magnesium Susp 30 Ml Udc) 15 ml PO Q4H PRN PRN Reason: Dyspepsia Stop: 09/08/21 21:38 Albuterol (Albuterol Hfa 8 Gm Inhaler) 2 puffs INH Q6H PRN PRN Reason: shortness of breath or wheezing Stop: 09/08/21 21:38 Aspirin (Aspirin 81 Mg Ectab) 81 mg PO QAM [facility] Stop: 09/10/21 16:29 Last Admin: 08/13/21 08:58 Dose: 81 mg Documented by: Calcium Carbonate (Calcium Carbonate 1250mg Tab) 1,250 mg PO BID [facility] Stop: 09/08/21 21:38 Last Admin: 08/13/21 08:58 Dose: 1,250 mg Documented by: Fluocinonide (Fluocinonide 0.05% Oint 15 Gm Tube) 1 appln EXT BID PRN PRN Reason: Rash Stop: 09/08/21 21:38 Fluticasone Propionate (Fluticasone Propionate Na Spr 16 Gm Btl) 2 sprays NA DAILY PRN PRN Reason: Nasal Congestion Stop: 09/08/21 21:38 Fluticasone/Vilanterol (Fluticasone/Vilanterol 100/25mcg 14 Puffs/Inhaler) 1 puffs INH DAILY [facility] Stop: 09/09/21 08:59 Last Admin: 08/13/21 08:58 Dose: 1 puffs Documented by: Furosemide (Furosemide 40 Mg/4 Ml Vial) 40 mg IV DAILY [facility] Stop: 09/09/21 08:59 Last Admin: 08/12/21 07:56 Dose: 40 mg Documented by: Heparin Sodium/Dextrose (Heparin Sodium/Dextrose) 25,000 units in 500 mls @ 22 mls/hr IV .[id number] [facility]; Protocol Stop: 09/09/21 11:14 Last Titration: 08/13/21 07:16 Dose: 1,100 units/hr, 22 mls/hr Documented by: Levothyroxine Sodium (Levothyroxine Sodium 75 Mcg Tablet) 75 mcg PO DAILYBB [facility] Stop: 09/09/21 06:29 Last Admin: 08/13/21 05:53 Dose: 75 mcg Documented by: Lorazepam (Lorazepam 0.5 Mg Tab) 0.5 mg PO DAILY PRN PRN Reason: Anxiety Stop: 09/08/21 21:38 Melatonin (Melatonin 3 Mg Tab) 3 mg PO HS PRN PRN Reason: Sleep Stop: 09/10/21 21:26 Last Admin: 08/11/21 21:58 Dose: 3 mg Documented by: Metoprolol Succinate (Metoprolol Succ 25mg Ext Rel Tab) 25 mg PO QAM [facility] Stop: 09/10/21 08:59 Last Admin: 08/13/21 08:59 Dose: 25 mg Documented by: Nystatin/Triamcinolone Acetonide (Nystatin/Triamcin Oint 15 Gm Tube) 1 appln EXT BID PRN PRN Reason: Rash Stop: 09/08/21 21:38 Ondansetron HCl (Ondansetron Inj 2 Mg/Ml 2 Ml Vial) 4 mg IV Q6H PRN PRN Reason: Nausea Stop: 09/08/21 21:38 Polyethylene Glycol (Polyethylene (Miralax) 17 Gm Pack) 17 gm PO DAILY PRN PRN Reason: Constipation Stop: 09/08/21 21:38 Pravastatin Sodium (Pravastatin Sod 20 Mg Tab) 20 mg PO HS [facility] Stop: 09/08/21 21:38 Last Admin: 08/12/21 20:20 Dose: 20 mg Documented by: Sacubitril/Valsartan (Valsartan/Sacubitril 26/24mg Tab) 1 tab PO BID [facility] Stop: 09/09/21 20:59 Last Admin: 08/13/21 08:59 Dose: 1 tab Documented by: Spironolactone (Spironolactone 25 Mg Tab) 25 mg PO QAM [facility] Stop: 09/10/21 08:59 Last Admin: 08/13/21 09:52 Dose: 25 mg Documented by: Venlafaxine HCl (Venlafaxine Hcl Xr 75 Mg Capxr) 75 mg PO QPM [facility] Stop: 09/08/21 21:38 Last Admin: 08/12/21 20:20 Dose: 75 mg Documented by: Venlafaxine HCl (Venlafaxine Hcl Xr 150 Mg Capxr) 150 mg PO HS [facility] Stop: 09/08/21 21:38 Last Admin: 08/12/21 20:20 Dose: 150 mg Documented by: Vitamin D (Cholecalciferol 1,000 Units 25 Mcg Tab) 2,000 units PO DAILY [facility] Stop: 09/09/21 08:59 Last Admin: 08/13/21 08:58 Dose: 2,000 units Documented by: PG Care Time/CCT Total # of Minutes Spent Total Time Spent with Patient: Total time spent is greater than 50% in coordination of care (as documented) at patient's floor/unit and/or counseling patient: Coding Level of Care Code 04653 Subseq Hosp Care Lvl 3 Diagnoses Acute HFrEF (heart failure with reduced ejection fraction) I50.21 Cardiomyopathy I42.9 Pulmonary hypertension I27.20 Mitral regurgitation I34.0 Tricuspid regurgitation I07.1 Hypertension I10 Hyperlipidemia E78.5 Left ventricular apical thrombus I51.3 CAD (coronary artery disease) I25.10
[2021-08-13] MEDS ORDERED: fentaNYL citrate 100 MCG/2 ML VIAL ONE (11:13)
[2021-08-13] MEDS ORDERED: niCARdipine HCL INJ 2.5 MG/ML 10 ML AMP ONE (11:13)
[2021-08-13] MEDS ORDERED: HEPARIN (PORCINE) 1000 UNIT/ML 10 ML (CATH LAB USE ONLY) ONE (11:13)
[2021-08-13] MEDS ORDERED: MIDAZOLAM HCL 1 MG/ML 2ML VIAL ONE (11:13)
--- NOTE | 2021-08-13 12:40 | Cardiac Catheterization ---
[facility] Data: [employer] Cardiac Status Clinical evaluation leading to the procedure CAD Presenation: No Sxs, No angina Anginal Classification: No Symptoms Heart Failure: NYHA Class: CCS IV Cardiogenic Shock within 24 Hours: No Cardiac Arrest within 24 Hours: No Imaging Studies Past 6 Months: Yes Stress Studies Past 6 Months: No Coronary Anatomy Dominant: Co-Dominant Diagnostic Physicians Name: Nacho Garcia MD Status: Elective Closure Device Percutaneous Entry Location: Femoral Closure Device: None-Manual Hold Recommendations: Management Recommendatons Cardiac Cath Procedure Full Procedure Date August 13, 2021 Pre-Procedure Diagnosis Pre-Procedure Diagnosis: CHF and Cardiomyopathy AUC Score AUC Score: 7 Post-Procedure Diagnosis Post-Procedure Diagnosis: Mild CAD Procedure(s) Performed Procedure(s) Performed: Coronary Angiography, Right Heart Cath and Ultrasound Guided Vascular Access Pouncing Machine Operator Nacho Garcia MD Pneumatic Jacketer(s) Showers Estimated Blood Loss Estimated Blood Loss: < 30 ml Medication(s) Medication(s): Fentanyl, Lidocaine 1% and Versed Summary of Findings Procedures: 1. Coronary angiography 2. Right heart catheterization 3. Moderate sedation 4. Ultrasound guidance for vascular access Indication: 66-year-old female with history of breast cancer s/p doxorubicin/left chest XRT, dyslipidemia, and prediabetes who presented with HFrEF and cardiomyopathy. Procedure notes: 1. Right radial artery was cannulated with access needle but wire was unable to be advanced. Decision was made to perform the procedure via femoral approach given that right heart catheterization was unable to be done via the left upper extremity and the right upper extremity had limited access for IVs and did not want to displace her previously placed IV. 2. Given known apical thrombus, there was no attempt to cross the aortic valve. Coronary angiography: 1. Left main: Ostial/proximal left main 20% narrowing. 2. Left anterior descending: Large-caliber vessel that wraps around the apex. Proximal LAD 20 to 30%. Small D1, D2, D3 vessels. 3. Circumflex: Codominant. Luminal irregularities within the proximal to mid circumflex. Very small caliber OM1. Large OM 2. Small caliber circumflex PDA. 4. Right coronary artery: RCA is large and codominant. Early mid RCA 20 to 30%. Late mid RCA 20%. Otherwise, luminal irregularities. PDA and PL branches without significant CAD. Right heart catheterization: 1. Pulmonary capillary wedge pressure: V wave 18 with a mean of 15 mmHg. 2. PA pressure: 37/15 with a mean of 22 mmHg. 3. Right ventricular pressure: 38/11 with EDP of 13 mmHg. 4. Right atrial pressure: A-wave 13, V wave 11, mean 10 mmHg. Significant respiratory variation. 5. Cardiac output via thermodilution was 3.3 L/min with a cardiac index of 1.62 L/min/m. 6. PVR 2.12 Wood units. Moderate sedation: 1. Sedation start time: 11:40 AM 2. Sedation end time: 12:17 PM Ultrasound guidance for vascular access: 1. The right femoral artery was visualized under ultrasound while cannulating with the access needle. It was accessed with first attempt and 5 [place] sheath was easily advanced over a wire. 2. The right femoral vein was visualized under ultrasound while cannulating the vein with access needle. This was successfully achieved on first attempt. A 6 [place] sheath was advanced over a wire. 3. No hematoma noted. Impression: 1. Mild nonobstructive CAD. 2. Mild pulmonary hypertension. 3. Borderline elevated left-sided filling pressure. 4. Low cardiac output. Plan: 1. Optimize medical therapy for CHF. 2. Risk factor modification for mild nonobstructive CAD. Hemodynamics Rest Ao:: 100/65 Final Ao: 109/64 LV: n/a Recommendations Recommendations: Management Recommendatons Specimens Specimens: None Radiation Exposure (mGy) 630 mGy. Fluoro time 5.4 min. Contrast (mls) 25 ml Procedural Complication(s) None Disposition PCU I attest to the content of the Intraoperative Record and any orders documented therein. Any exceptions are noted below. [facility] Card Cath Procedure Codes Cardiac Catheterization Procedure 1: Cardiovascular Cath Procedures: 81865 Coronaries and RHC Therapeutic Services & Ancillary Proc Procedure 1: Cardiovascular Tx and Anc Procedures: 73524 Ultrasonic Guidance Vascular Access Moderate Sedation Procedure 1: Sedation/Anesthesia: 19057 Mod Sedation by the same physician;Init15 Min Child Age 5 & Up Procedure 2: Sedation/Anesthesia: 56610 Mod Sedation by the same physician; Ea [id number] Minutes Procedure 3: Sedation/Anesthesia: 82358 Mod Sedation by the same physician; Ea [id number] Minutes PG Care Time/CCT Total # of Minutes Spent Total Time Spent with Patient: Total time spent is greater than 50% in coordination of care (as documented) at patient's floor/unit and/or counseling patient:
--- NOTE | 2021-08-13 12:45 | Post Anesthesia Assessment ---
Date of Service August 13, 2021 Post Sedation Assessment Vital Signs Temp Pulse Pulse Resp BP Pulse Ox Pulse Ox 08/13/21 10:57 86 20 111/77 96 08/13/21 08:35 98 H 08/13/21 07:12 36.6 C 82 16 113/78 97 08/13/21 03:00 37.0 C 80 18 120/74 95 08/12/21 23:27 37.0 C 90 18 104/69 95 08/12/21 22:30 98 H 08/12/21 21:39 97 08/12/21 20:18 99 H 113/74 08/12/21 19:00 36.4 C L 95 H 16 104/72 97 08/12/21 15:48 85 08/12/21 15:25 36.6 C 85 18 107/73 96 Recovery Score Activity: Moves 4 extremities Respiration: Deep Breath/Cough Circulation: +/-20% PreAnes Value Consciousness: Fully Awake Oxygen Saturation: > 92% On Room Air Discharge Sedation Level of Care: Fast Track Phase II Post Sedation Plan On clinical assessment, the patient appears to have tolerated the sedation without complications. Patient is recovering as anticipated. Patient will continue to be monitored by nursing and may be discharged when sedation discharge criteria are met per below protocol. Upon Completions of procedure up to 15 minutes continue every 5 minute vital signs and the P.A.R. score; then discharge to a Phase I or Fast Track to Phase I I per the following guidelines: * Discharge Patient to appropriate Phase II area if PAR is 8 or greater or return to pre- procedure baseline. The post - procedure orders will be as directed. * If PAR score is less than 8 or not return to pre-procedure baseline then patient will follow Phase I monitoring till PAR is reached for Phase II. The Phase I may be done in procedure room or may call to secure a Phase I area. * If naloxone or flumazenil are used for reversal, hold in Phase I for continued monitoring from when last reversal dose was given for a minimum of 60 minutes or longer pending the nurse and/or physician discretion of patient condition before discharge to Phase II. Please call the Sedation Physician to re-evaluate and complete post-note for discharge to Phase II area. Do NOT discharge from procedure sedation or Phase 1 until post- sedation evaluation note is complete by procedure /sedation MD Sedation Discharge Instructions to be given to the patient at discharge to home.
--- NOTE | 2021-08-13 18:27 | Discharge Summary ---
Date of Service August 13, 2021 Admission HPI Per Admitting Provider Faina Kerr is a 66-year-old female with past medical history of anxiety, depression, breast cancer for which she received doxorubicin, hyperlipidemia, hypothyroidism, osteoporosis, prediabetes who presented to [facility] for shortness of breath. States that symptoms started in May and she had presented to her PCPs office for evaluation. At that time, her symptoms were thought to be caused by asthma exacerbation and bacterial rhinosinusitis. She was given albuterol and doxycycline. Later that month she did present again to her PCPs office for follow-up and was incidentally found to have frequent PVCs at that visit. She did not endorse any chest pain or palpitations with this, though she did report occasionally feeling skipped beats. She was referred to cardiology for further discussion. [place] [facility] [place] late [place]. A Holter monitor was ordered, and at the time she did report some wheezing and mild dyspnea. Thought to be related to underlying bronchitis or lung issue, but echocardiogram to be considered if she did not improve. She presented again to her primary care office in late July with continued shortness of breath. At this visit, her symptoms did seem more consistent with exertional dyspnea as she reported having to stop and rest when walking up her street and going up stairs. At that point, stress testing was ordered and it was recommended that she present to the ER if she had worsening shortness of breath or chest pain. Today, she did have worsening dyspnea. Continues to report that it feels worse with exertion and now with laying down as well. She does feel somewhat better when she sits up. Also reported some ankle swelling, worse on her right. Denies chest pain, nausea, vomiting, abdominal pain, fever, chills, headache, dizziness. In the ED, patient had CT of the chest demonstrating pulmonary edema with moderate bilateral pleural effusions and cardiomegaly, no PE, and did show gallbladder wall thickening with adjacent stranding this was considered to be nonspecific and possibly related to volume overload/congestive heart failure. She did not report any abdominal/GI symptoms at this time. Lab work showing normal WBC, normal hemoglobin, normal platelet count, normal electrolytes. Troponin mildly elevated to 36.9. Initial creatinine at 1.15, which was repeated later and had increased to 1.23. Did have elevated LFTs with AST of 42, ALT 73, alk phos 109. She received a single dose of Lasix 20 mg IV. Admission Exam Per Admitting Provider GENERAL: A&Ox3. NAD. HEENT: PERRL, EOMI. Moist mucous membranes. NECK: No JVD. No lymphadenopathy. CHEST/LUNGS: CTAB A/P. No crackles, wheezes, rales, rhonchi. HEART: Tachycardic, regular rhythm. No m/g/r. No carotid bruits. ABDOMEN: NT/ND, soft. BS+ x4 EXTREMITIES: 1+ pitting edema in right lower extremity up to ankle, trace edema in left lower extremity. No cyanosis, no clubbing. SKIN: Warm and dry. No rashes or lesions. PSYCHIATRIC: Euthymic affect, no SI, no pressured speech, no hallucinations NEUROLOGIC: No FND. CN II-XII grossly intact. Principal Diagnosis new onset acute CHF, left ventricle thrombus Discharge Exam GENERAL: No acute distress. Vital signs reviewed as above. EYES: EOMI. Anicteric sclerae. HENT: Moist mucous membranes. RESPIRATORY: No respiratory distress. Unlabored respirations. Clear to auscultation bilaterally. No wheezing. CARDIOVASCULAR: RRR. No murmurs. 2+ pedal pulses bilaterally. EXTREMITIES: Non-tender. Trace b/l pedal edema. SKIN: Warm, dry. No rashes or lesions. NEUROLOGIC: AOx3. Normal speech. No focal neurological deficits. PSYCHIATRIC: Cooperative. Appropriate mood and affect. Discharge Data Allergies Allergy/AdvReac Type Severity Reaction Status Date / Time cephalexin Allergy Mild RASH Verified 08/09/21 21:31 Penicillins Allergy Mild UNKNOWN Verified 08/09/21 21:31 Cephalosporins Allergy Unknown RASH Verified 08/09/21 21:31 Consultations 08/09/21 19:34 ED Decision to Admit Stat 08/09/21 21:39 Consult Cardiology Routine 08/10/21 23:12 [facility] [place] Referral Routine Procedures Performed Operation Date: 08/13/21 11:00 Actual Procedures p Cath, Right Heart with Cors - Nacho Garcia MD s Ultrasound Vascular Access - Nacho Garcia MD Ordered Studies Laboratory Results WBC 10.34 K/uL (4.8-10.8) 08/11/21 05:58 RBC 4.80 M/uL (4.2-5.4) 08/11/21 05:58 Hgb 13.7 g/dL (12.0-16.0) 08/11/21 05:58 Hct 41.5 % (37-47) 08/11/21 05:58 MCV 86.5 fL (80-100) 08/11/21 05:58 MCH 28.5 pg (25-34) 08/11/21 05:58 MCHC 33.0 g/dL (32-36) 08/11/21 05:58 RDW Std Deviation 43.0 fL (36.4-46.3) 08/11/21 05:58 RDW Coeff of Jesse 13.7 % (11.5-14.5) 08/11/21 05:58 Plt Count 228 K/uL (130-400) 08/11/21 05:58 MPV 11.2 fL (7.4-10.4) H 08/11/21 05:58 Immature Gran % (Auto) 0.1 % 08/10/21 03:27 Neut % (Auto) 66.6 % 08/10/21 03:27 Lymph % (Auto) 23.0 % 08/10/21 03:27 [place] % (Auto) 9.0 % 08/10/21 03:27 Eos % (Auto) 1.1 % 08/10/21 03:27 Baso % (Auto) 0.2 % 08/10/21 03:27 Neut # (Auto) 5.61 K/uL (1.4-6.5) 08/10/21 03:27 Lymph # (Auto) 1.94 K/uL (1.2-3.4) 08/10/21 03:27 [place] # (Auto) 0.76 K/uL (0.11-0.59) H 08/10/21 03:27 Eos # (Auto) 0.09 K/uL (0-0.5) 08/10/21 03:27 Baso # (Auto) 0.02 K/uL (0-0.2) 08/10/21 03:27 Immature Gran # (Auto) 0.01 K/uL (0.00-0.02) 08/10/21 03:27 PT 12.4 Seconds (9.0-12.0) H 08/11/21 05:58 INR 1.2 (0.9-1.1) H 08/11/21 05:58 APTT 61.5 Seconds (21.0-31.0) H* 08/13/21 05:16 PTT Ratio 2.2 08/13/21 05:16 Sodium 140 mmol/L (136-145) 08/13/21 05:16 Potassium 4.1 mmol/L (3.5-5.1) 08/13/21 05:16 Chloride 101 mmol/L (98-107) 08/13/21 05:16 Carbon Dioxide 31 mmol/L (21-32) 08/13/21 05:16 Anion Gap 8 (3-11) 08/13/21 05:16 BUN 32 mg/dl (6-23) H 08/13/21 05:16 Creatinine 1.08 mg/dl (0.6-1.2) 08/13/21 05:16 Est Cr Clr Drug Dosing 59.1 ml/min 08/13/21 05:16 Est GFR ( Amer) 61.5 ml/min 08/13/21 05:16 Est GFR (Non-Af Amer) 53.1 ml/min 08/13/21 05:16 BUN/Creatinine Ratio 29.6 (10-20) H 08/13/21 05:16 Glucose 103 mg/dl (70-99(Fasting)) H 08/13/21 05:16 Calcium 9.6 mg/dl (8.5-10.1) 08/13/21 05:16 Magnesium 1.9 mg/dl (1.7-2.4) 08/10/21 03:27 Total Bilirubin 0.8 mg/dl (0.2-1.0) 08/11/21 05:58 AST 32 U/L (13-39) 08/11/21 05:58 ALT 56 U/L (7-52) H 08/11/21 05:58 Alkaline Phosphatase 89 U/L (34-104) 08/11/21 05:58 Troponin I High Sens 39.3 pg/ml (0-14) H 08/10/21 03:27 B-Natriuretic Peptide 2573 pg/ml (0-100) H 08/09/21 14:22 Total Protein 6.1 gm/dl (6.0-8.3) 08/11/21 05:58 Albumin 3.2 gm/dl (3.4-5.0) L 08/11/21 05:58 Globulin 2.9 gm/dl (2.5-4.0) 08/11/21 05:58 Albumin/Globulin Ratio 1.1 (0.9-2) 08/11/21 05:58 TSH 1.579 uIu/ml (0.300-4.500) 08/10/21 06:07 SARS-CoV-2, RNA, NAAT NEGATIVE (NEGATIVE) 08/09/21 20:33 Impressions Chest X-Ray 08/09/21 14:05 XR chest 1V portable CLINICAL HISTORY: SOB TECHNIQUE: Single frontal radiograph of the chest was obtained. Comparison: Comparison is made to chest radiograph 07/06/2019 FINDINGS: A left portacatheter is unchanged. The cardiomediastinal silhouette is normal. The lungs are clear. There is a small left pleural effusion. Trace right effusion cannot be excluded. IMPRESSION: Small bilateral pleural effusions. No evidence of airspace opacity. ACT 112: Negative or not required by law. Electronically signed by: Gautam Cowan M.D. 08/09/2021 4:30 PM Chest CTA 08/09/21 16:51 CT ANGIOGRAPHY OF THE CHEST, PULMONARY EMBOLUS PROTOCOL CLINICAL HISTORY: Shortness of breath. Tachycardia. COMPARISON STUDY: Chest radiograph July 05, 2021 and August 09, 2021. PET/CT February 24, 2007. TECHNIQUE: Following IV administration of 118 mL of Optiray, helical axial images of the chest were obtained utilizing the pulmonary embolus protocol. Maximal intensity projections and sagittal and coronal reformats were viewed on an independent 3D workstation. IV contrast was administered without complication. Automated exposure control was utilized for the study. A dose lowering technique was utilized adhering to the principles of ALARA. CT DOSE: 423.83 mGy.cm FINDINGS: No pulmonary emboli are identified. Moderate cardiomegaly is noted. There is no pericardial effusion. Prominent mediastinal and bilateral hilar lymph nodes are noted. These may be related to pulmonary edema. There is no pneumothorax. Moderate bilateral pleural effusions are present. Lungs are suboptimally assessed due to respiratory motion. Interlobular septal thickening and groundglass opacities within the lungs suggest pulmonary edema. Central airways are patent. Linear opacities reflect atelectasis. There is no pneumothorax. Postoperative findings within the bilateral axilla are noted. There are bilateral mastectomies. Gallbladder wall thickening is incidentally noted. This is a nonspecific finding. There is mild body wall edema. Stranding within the upper abdomen is likely due to volume overload. IMPRESSION: 1. No pulmonary emboli identified. 2. Findings consistent with pulmonary edema with moderate bilateral pleural effusions. Cardiomegaly. 3. Gallbladder wall thickening with adjacent stranding which is nonspecific and may be related to volume overload/congestive heart failure. This could be correlated with right upper quadrant pain. ACT 112: Negative or not required by law. Electronically signed by: Yahir Griffith M.D. 08/09/2021 5:31 PM Venous Doppler Study 08/10/21 10:04 US venous doppler LE RT CLINICAL HISTORY: RLE swelling TECHNIQUE: Right lower extremity real-time compression venous ultrasound with Color Doppler imaging. Utilizing real-time ultrasonic imaging multiple real time high-resolution ultrasonic images with compression and noncompression maneuvers of the deep venous system in addition to color doppler imaging were performed from the common femoral vein through the proximal calf veins. COMPARISON: None available at the time of this dictation. FINDINGS: Currently there is normal compressibility of the deep venous system from the common femoral vein through the proximal calf veins. A popliteal cyst at lesion is seen measuring 8.3 x 2.0 x 7.3 cm. This is favored to represent a Tompkins's cyst. Impression: No evidence of deep venous thrombus. ACT 112: Negative or not required by law. Electronically signed by: Gautam Cowan M.D. 08/10/2021 11:53 AM Hospital Course (1) Congestive heart failure: 66yo F with PMHx of anxiety, depression, breast cancer for which she received doxorubicin, hyperlipidemia, hypothyroidism, osteoporosis, prediabetes who presented to [facility] for SOB. Imaging and physical exam findings consistent with fluid overload concerning for new-onset CHF. New Dilated cardiomyopathy with acute HFrEF likely, new onset possibly due to chronic doxorubicin use, cannot r/o CAD or carotid artery stenosis EKGs do show some evidence of likely prior ischemia BNP elevated at 2573 on admission Received Lasix 20 mg IV in ED, Lasix 40 mg IV daily, with occasional supplemental lasix doses Monitored I's/O's, daily weights Echo (08/10): severely reduced systolic function with EF 20-25%. Severe global hypokinesis. Apical thrombus. Moderate mitral regurg. Moderate to severe tricuspid regurg. Moderate pulmonary HTN (RSVP 53 mmHg). Pleural effusion. Cardiology consulted: Medical therapy w/ metoprolol succinate, Entresto, tavia nolactone, aspirin. Start SGLT2 inhibitor on discharge. - Heart cath performed (08/13): Mild nonobstructive CAD, mild pulmonary hypertension, borderline elevated left-sided filling pressure, low cardiac output. - Will optimize medical therapy for CHF: cont. entresto, spironolactone, aspirin, lasix 40mg po, jardiance, atorvastatin, metoprolol - Reinforced importance of low sodium diet ( < 2000mg salt daily) - f/u with heart failure program Left ventricle Thrombus - new - IV heparin during stay - Discharge with eliquis for anticoagulation therapy x3 months - f/u cardiology Elevated troponin, peaked Mild troponin elevation on admission, peaked at [address] depression in anterolateral leads, which are visible in EKG from June 07, 2021 Remains w/o chest pain Cardiology consulted as above - cont. home statin. Elevated LFTs, improving CT findings of gallbladder wall thickening with adjacent stranding as well Likely secondary to fluid overload Remains w/o current abdominal/GI complaints LFTs are down trending; cont. to monitor Right leg edema RLE Doppler 08/10: no evidence of DVT; popliteal cyst 8.3 x 2.0 x 7.3 cm favored to represent Tompkins's cyst Anxiety/depression/schizoid personality disorder Continue home venlafaxine Continue home lorazepam prn Hyperlipidemia Continue home pravastatin Hypothyroidism Continue home levothyroxine Asthma/bronchitis Continue home inhaler regimen Prediabetes A1c 5.8% on 07/10/21 Encourage lifestyle modification and will need outpatient PCP f/u (2) Dyspnea: (3) Elevated troponin: (4) Hyperlipidemia: (5) Hypothyroidism: (6) Vitamin D deficiency: (7) Schizoid personality disorder, unspecified: (8) Polyp of colon, adenomatous: (9) Osteoporosis: (10) Breast cancer: (11) Anxiety: (12) Depression: Total Time Total Time Spent Total Time Spent (In Minutes): <30 Discharge Plan Discharge Items Patient Disposition: Home - Self-Care Reason For Visit: NEW ONSET CHF Discharge Diagnosis: new onset acute CHF Activity: Per Instructions section Non-emergency contact: Primary Care Provider and Spanish Lecturer Call non-emergency contact if: you have any medication questions and your symptoms worsen Follow-up/Referrals: ProLamberto MD [Primary Care Provider] - Maureen Murrieta PA-C [Physician Payroll Accounting Clerk] - 08/20/21 10:30 am (Congestive Heart Failure Program Appointment Information Early follow up is essential to managing your heart failure. An appointment has been scheduled for you with the [facility] Heart Failure Program within 7 days of discharge. Anticipate this visit to be 30-60 minutes long. Please expect a facilities administrator phone call from one of our nurses approximately 48 hours from discharge. They will also be placing an order for lab work to be completed 1-2 days prior to your heart failure follow up appointment. Please be sure to have this done so we can go over the results when you come in. Office Location The cardiology office building is located in front of the hospital at [address]. Bring the following with you to your follow-up doctor appointments: Please bring your daily weight log any discharge paperwork all of your medication bottles with you to this visit. ) Diet: Heart Healthy and Low Sodium (2gm) Addtl Attending Provider Instructions: A discharge summary will be sent to your primary care physician to ensure continuity of care. You came to the hospital due to experiencing worsening shortness of breath, especially with activity, over the past several months. Your work up and physical exam was consistent with fluid overload concerning for new-onset congestive heart failure (CHF). Over the course of your hospital stay, you were diuresed (the fluid was taken off) with medication and you have done well. You also underwent a cardiac catheterization with the laboratory asst (heart doctor). You are no longer symptomatic. You have done well and at this point we feel that it is safe for you to be discharged home. You are being started on multiple new medications for the congestive heart failure as noted below. It is important that you follow up with both your primary care doctor and the heart failure clinic. As we discussed, it is very important that you watch salt intake / diet changes. You should eat no more than 2000mg of salt per day. Most of the salt that is consumed in our diet is not table salt, but is "hidden" salt in processed food for taste and preservative effect. Please look at the food labels. You should weigh yourself daily. Call your primary care doctor or your laboratory asst if you gain more than 2 pounds in one day. Follow-up: * You should be seen by your primary physician within the next week. Please call them tomorrow to scheduled an appointment. * You should follow up with your primary laboratory asst, Dr. Sargent. Please call to schedule an appointment. * You should follow up with the heart failure program as scheduled on 08/20/21 at 10:30 AM. Medications: Your medication list has been reviewed and reconciled upon discharge to ensure accuracy and continuity of care. An updated list of all your medications is included with your hospital discharge paperwork. Please review this list closely, and make note of any changes. The following are important changes/medications that have been added: * Entresto 26/25mg twice daily * Eliquis 5mg twice daily for 3 months * Furosemide (Lasix) 40mg daily. This likely will not be a "forever" medication and it is important that you follow up with your family doctor about this medication. * Spironolactone 25mg daily * Metoprolol XL 25mg daily * Atorvastatin (Lipitor) 40mg daily (STOP your previously taken Pravastatin medication) * Jardiance 10mg daily Take your medications as instructed; do not skip a dose of your medicines. Make sure all of your doctors know every medicine you are taking (including [id number] medicines, vitamins, and supplements). let your primary care provider know before taking any new medicines because some of these may interact with your current medications, or may make your symptoms worse. CONTACT YOUR PRIMARY CARE PROVIDER if you experience any of the following: * Fevers or shaking chills * Shortness of breath that is worsening * Difficulty following your treatment plan, or difficulty taking medications CALL 911 OR GO TO THE EMERGENCY DEPARTMENT if you experience any of the following: * Sudden, severe abdominal pain or nausea/vomiting * Severe chest pain, or chest pain that radiates (moves) to your jaw or arm * Sudden, severe shortness of breath or difficulty breathing It was was our pleasure taking care of you here at [facility] . Thank you for allowing us to participate in your care. Addtl [employer] Provider Instructions: Following catheterization: ACTIVITY RECOMMENDATIONS: It is common to feel weak and fatigue for a few days. * Do not drive or operate any motorized equipment for the next three days. * Limit stair usage (2 or 3 trips a day only) for the next three days. * Do not lift anything heavier than 10 pounds for the next three days. * Do not engage in vigorous exercise or any sports for the next five days. * You may shower the day after your procedure, but do not immerse the area for three days. Cleanse the site gently with soap and water. SPECIAL CARE INSTRUCTIONS: * You may replace the pressure dressing or band-aid the morning after the procedure. * After your procedure, it is normal to have a small bruise or small lump at the site. Examine your site daily for any change in the bruise or lump, redness, swelling, drainage or numbness. Notify your doctor if any change. BLEEDING: * If there is a small amount of bleeding at the site, lie down and apply firm pressure with a clean cloth for ten minutes. When the bleeding stops, lie quietly keeping the procedure limb straight for six hours. Notify your doctor as soon as possible. * If the bleeding does not stop after ten minutes or if there is a large amount of bleeding or spurting, call 911 immediately. Continue to lie down and hold firm pressure until help arrives. SKIN IRRITATION: * You may experience some redness and/or swelling in the area where radiation was administered. If any skin irritation occurs, please contact your family physician. Call your Primary Care doctor if any of the following symptoms or problems start or get worse: * Shortness of breath or difficulty breathing * Wake up at night short of breath * Chest pain * Cough * Swelling of your hands, feet, or legs * More fatigued or tired with your normal activity * Palpitations - sudden fast heart beats WEIGHT * Weigh yourself every morning after using the bathroom. * Use the same scale. * Wear the same amount of clothing. * Write your weight down on a chart. * Call your Primary Care doctor if you gain more than 2-3 pounds in 1-2 days. MEDICATIONS * Use this discharge instruction sheet for medication instructions. * Take your medications at the time your doctor ordered. * Do not skip a dose of your medicines. * If you miss a dose of medicine, take it as soon as possible, but DO NOT DOUBLE A DOSE. * Read your medicine information when you get home. * Know all of the side effects of your medicine. If in doubt, ask your pharmacist * Call your Primary Care doctor's office if you have any side effects. * Be sure all of your doctors know what medicine and herbs you take (including cold, flu, and herbal medicine). Take the following with you to your follow-up doctor appointments: * Weight Chart * Medication List * List of questions Do not drink excessive alcohol, beer or wine. Pending Studies at Discharge: No Stand-Alone Forms: My [facility], Smoking Cessation Medications and DC Order Prescriptions: New furosemide 40 mg Tablet 40 mg PO QAM 30 Days Qty: 30 RF: 0 atorvastatin 40 mg Tablet 40 mg PO HS 30 Days Qty: 30 RF: 0 spironolactone 25 mg Tablet 25 mg PO QAM 30 Days Qty: 30 RF: 0 metoprolol succinate 25 mg Tablet Extended Release 24 Hr 25 mg PO QAM 30 Days Qty: 30 RF: 0 Entresto 24-26 mg Tablet 1 tab PO BID 30 Days Qty: 60 RF: 0 Eliquis 5 mg tablet 5 mg PO BID 30 Days Qty: 60 RF: 0 Jardiance 10 mg tablet 10 mg PO DAILY 30 Days Qty: 30 RF: 0 Continued venlafaxine [Effexor XR] 150 mg capsule,extended release 24hr 150 mg PO HS Qty: 90 RF: 0 cholecalciferol (vitamin D3) 50 mcg (2,000 unit) capsule 50 mcg PO DAILY Qty: 30 RF: 0 levothyroxine 75 mcg tablet 75 mcg PO DAILY Qty: 90 RF: 3 budesonide-formoterol [Symbicort] 80-4.5 mcg/actuation HFA aerosol inhaler 1 inh inhalation BID Qty: 10.2 RF: 0 venlafaxine [Effexor XR] 75 mg capsule,extended release 24hr 75 mg PO HS RF: 0 fluocinonide 0.05 % gel 1 applic TOP BID PRN (Reason: flare ups) RF: 0 mupirocin 2 % ointment 1 applic TOP BID PRN (Reason: flare ups) RF: 0 albuterol sulfate 90 mcg/actuation HFA aerosol inhaler 2 puff inhalation Q6H PRN (Reason: shortness of breath or wheezing) Qty: 6.7 RF: 0 fluticasone propionate [Flonase Allergy Relief] 50 mcg/actuation spray,suspension 2 spray intranasal DAILY PRN (Reason: Nasal Congestion) RF: 0 nystatin-triamcinolone 100,000-0.1 unit/gram-% ointment 1 applic TOP BID PRN (Reason: ..) RF: 0 lorazepam [Ativan] 0.5 mg tablet 0.5 mg PO DAILY PRN (Reason: Anxiety) RF: 0 calcium carbonate [Calcium 600] 600 mg calcium (1,500 mg) Tablet 600 mg PO BID RF: 0 Discontinued pravastatin 20 mg tablet 20 mg PO HS Qty: 90 RF: 3 Discharge Orders: Discharge Order (Routine); Ordered 08/13/21 Ordered By: Paty Painter/Other Patient Handouts: Heart Failure Admission Data Admit Date/Time: 08/09/21 20:19 Attending Provider: Jeff Gooden Admit Provider: Demond Knox Primary Care Provider: Lamberto Ortiz Other Providers: Gerald Rubin ; Nacho Garcia ; Maureen Murrieta Other Interventions: Discharge Summary Assessment (RN) Last Done: 08/13/21 17:10 Supervising Physician Co-Signing Physician Notes I personally examined the patient and verified all good points of history and exam, discussed case, and agree with decision making with Dr Beltran post cath, feeling stable for home vitals noted nad heent nc at mmm breathing unlabored no accessory muscles good effort no conversational dyspnea acute HFrEF - will need chornic med management (entresto, metoprolol, spironolactone, lasix). educated on Na restriction and importance thereof. set up w CHF clinic. 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
--- NOTE | 2021-08-13 19:07 | Billing Data ---
Date of Service August 13, 2021 Coding Level of Care Code D/C DAY MANAGEMENT <30 MINS
[2021-08-13] MEDS ORDERED: ATORVASTATIN 40 MG TAB PO SCH (21:00)
[2021-08-14] MEDS ORDERED: FUROSEMIDE 40 MG TAB PO SCH (09:00)
[2021-08-15 07:02] LABS: iSTAT Arterial Blood Gas HCO3 29 meg/L (19-24); iSTAT Arterial Blood Gas pCO2 50 mmHg (35-46); iSTAT Arterial Blood Gas pH 7.38 (7.35-7.45); iSTAT Arterial Blood Gas pO2 96 mmHg (80-95); iSTAT Carbon Dioxide 31 mmol/L (24-31)
[2021-08-15 07:02] LABS: iSTAT Arterial Blood Gas HCO3 29 meg/L (19-24); iSTAT Arterial Blood Gas pCO2 53 mmHg (35-46); iSTAT Arterial Blood Gas pH 7.35 (7.35-7.45); iSTAT Arterial Blood Gas pO2 35 mmHg (80-95); iSTAT Carbon Dioxide 31 mmol/L (24-31)
== END 2021-08-13 18:48 | disposition home or self-care (01) | DRG 286 ==
LOC: ED 13:57 → 2E 20:19 → SUATTDRO 20:19 → 2E 21:48